=== PATIENT | female | born 1960 | race Caucasian/White ===

== ENCOUNTER → 2016-10-14 | Outpatient (CLI) | payer OTHER ==
[2016-08-04 11:46] VITALS: BP 171/101
[~2016-10-14] MED LIST: HYDR-971 PO
[2016-10-14 13:53] LABS: BASO # 0.1 x10^3/uL (0.0-0.2); BASO % 1 % (0-3); EOS % 6 % (0-3); HEMATOCRIT 42.6 % (36.0-47.0); HEMOGLOBIN 14.5 g/dL (12.0-15.5); LYMPH # 1.4 x10^3/uL (1.0-4.8); LYMPH % 28 % (24-48); MEAN CORPUSCULAR HEMOGLOBIN 33 pg (25-35); MEAN CORPUSCULAR HGB CONC 34 g/dL (31-37); MEAN CORPUSCULAR VOLUME 96 fL (79-100); MONO % 10 % (0-9); NEUT % 56 % (31-73); PLATELET COUNT 244 x10^3/uL (140-400); RED BLOOD COUNT 4.43 x10^6/uL (3.50-5.40); RED CELL DISTRIBUTION WIDTH 12.3 % (11.5-14.5); WHITE BLOOD COUNT 5.2 x10^3/uL (4.0-11.0)
[2016-10-14 14:16] LABS: ALBUMIN 3.7 g/dL (3.4-5.0); ALBUMIN/GLOBULIN RATIO 1.1 (1.0-1.7); CALCIUM 8.8 mg/dL (8.5-10.1); CREATININE 0.7 mg/dL (0.6-1.0); GFR 86.6; POTASSIUM 4.1 mmol/L (3.5-5.1); TOTAL BILIRUBIN 0.5 mg/dL (0.2-1.0)
[2016-10-15 02:12] LABS: VITAMIN D25(OH)TOTAL 8.7 ng/mL (30.0-100.0)
[2016-10-15 09:15] LABS: ESTRADIOL LEVEL 6.6 pg/mL (.); FSH 52.3 mIU/mL (.); TESTOSTERONE TOTAL 13 ng/dL (3-41)
== END | disposition home or self-care (01) ==
LOC: LAB 13:35
PROVIDERS: ATTEND Family Medicine
DX: G47.00 Insomnia, unspecified (principal); R53.81 Other malaise; E34.9 Endocrine disorder, unspecified
CPT/HCPCS: 36415; 80053; 82306; 82670; 83001; 84403; 84443; 85027

== ENCOUNTER 2016-10-31 15:29 | Emergency (ER) | payer OTHER ==
[2016-08-04 11:46] VITALS: BP 171/101
== END 2016-10-31 16:33 | disposition left against medical advice (07) ==
LOC: ER 15:29
DX: R06.02 Shortness of breath (principal); Z53.21 Procedure and treatment not carried out due to patient leaving prior to being seen by health care provider

== ENCOUNTER 2016-11-02 11:57 | Emergency (ER) | payer OTHER ==
[~2016-11-02] VITALS: Ht 170.2 cm; Wt 81.6 kg
[2016-11-02 13:15] VITALS: BP 126/80
[2016-11-02] MEDS ORDERED: ALBUTEROL SULFATE 2.5 MG/3 ML NEBU. NEB ONE (13:30)
--- NOTE | 2016-11-02 13:48 | RAD ---
Chest, 2 views, 11/02/2016: History: Deep, painful cough The heart size is normal. No pulmonary infiltrates are seen. There is no evidence of pleural fluid. Mild spurring is present in the spine. IMPRESSION: No acute cardiopulmonary abnormality is detected.
--- NOTE | 2016-11-02 13:50 | PHYS DOC ---
Past Medical History Past Medical History: Hypertension Past Surgical History: No Surgical History Alcohol Use: Occasionally Drug Use: None Adult General Chief Complaint Chief Complaint: COUGH HPI HPI Patient is a 56 year old female who presents with cough for two weeks. Reports her PCP called in a Z-matt three days ago and it has not helped. She has also been using her inhaler without much relief. Denies fever, nasal congestion, sore throat, chest pain, edema. Quit smoking one month ago Review of Systems Review of Systems Constitutional: Denies fever or chills Eyes: Denies change in visual acuity, redness, or eye pain [] HENT: Denies nasal congestion or sore throat Respiratory: Denies shortness of breath. Cough 2 weeks Cardiovascular: No additional information not addressed in HPI [] GI: Denies abdominal pain, nausea, vomiting, bloody stools or diarrhea [] : Denies dysuria or hematuria [] Musculoskeletal: Denies back pain or joint pain [] Integument: Denies rash or skin lesions [] Neurologic: Denies headache, focal weakness or sensory changes [] Endocrine: Denies polyuria or polydipsia [] Current Medications Current Medications Current Medications Medications (Trade) Dose Ordered Sig/Parvin Start Time Stop Time Status Last Admin Dose Admin Albuterol Sulfate (Ventolin Neb Soln) 2.5 mg 1X ONCE 11/02/16 13:30 11/02/16 13:31 DC 11/02/16 13:36 2.5 MG Prednisone (Prednisone) 60 mg 1X ONCE 11/02/16 14:00 11/02/16 14:01 DC 11/02/16 14:06 60 MG Allergies Allergies Allergies Coded Allergies Type Severity Reaction Last Updated Verified No Known Drug Allergies 08/04/16 No Physical Exam Physical Exam Constitutional: Well developed, well nourished, no acute distress, non-toxic appearance. [] HENT: Normocephalic, atraumatic, bilateral external ears normal, oropharynx moist, no oral exudates, nose normal. Eyes: PERRLA, EOMI, conjunctiva normal, no discharge. Neck: Normal range of motion, no tenderness, supple, no stridor. Cardiovascular:Heart rate regular rhythm, no murmur Lungs & Thorax: Expiratory wheezes posterior upper lobes. No increased work of breathing Abdomen: Bowel sounds normal, soft, no tenderness, no masses, no pulsatile masses. Skin: Warm, dry, no erythema, no rash. [] Back: No tenderness, no CVA tenderness. [] Extremities: No tenderness, no cyanosis, no clubbing, ROM intact, no edema. [] Neurologic: Alert and oriented X 3, normal motor function, normal sensory function, no focal deficits noted. [] Psychologic: Affect normal, judgement normal, mood normal. [] Current Patient Data Vital Signs Vital Signs Date Time Temp Pulse Resp B/P Pulse Ox O2 Delivery O2 Flow Rate FiO2 11/02/16 13:36 Room Air 11/02/16 13:15 98.3 80 20 97 98.3 EKG EKG [] Radiology/Procedures Radiology/Procedures [] Impressions: 1. Bronchitis Course & Med Decision Making Course & Med Decision Making Pertinent Labs and Imaging studies reviewed. (See chart for details) Wheezes clear after treatment Dragon Disclaimer Dragon Disclaimer This electronic medical record was generated, in whole or in part, using a voice recognition dictation system. Departure Departure Impression: Primary Impression: Bronchitis Disposition: 01 HOME, SELF-CARE Condition: STABLE Referrals: ARNAUD KLEIN MD (PCP) Patient Instructions: Acute Bronchitis, [id number] Additional Instructions: Continue the antibiotic as prescribed along with the inhaler. Follow up with primary doctor in 2-3 days. Return if any problems or concerns. Scripts Benzonatate (Tessalon Perle)100 Mg [id number] Mg PO TID PRN COUGH #20 CAP Prov:SARAH GALARZA APRN 11/02/16 Prednisone 50 Mg [id number] Mg PO DAILY #5 TAB Prov:SARAH GALARZA APRN 11/02/16 SARAH GALARZA APRN Nov 02, 2016 13:50
[2016-11-02] MEDS ORDERED: PREDNISONE 20 MG TABLET PO ONE (14:00)
[2016-11-02] MEDS ORDERED: BENZ100C PO (14:21)
[2016-11-02] MEDS ORDERED: PRED50TA PO (14:21)
== END 2016-11-02 14:26 | disposition home or self-care (01) ==
LOC: ER 11:57
DX: J40 Bronchitis, not specified as acute or chronic (principal); I10 Essential (primary) hypertension
CPT/HCPCS: 71020; 94250; 94640; 99284; J7512

== ENCOUNTER → 2016-11-09 | Outpatient (CLI) | payer OTHER ==
[2016-11-02 13:15] VITALS: BP 126/80
[~2016-11-09] MED LIST changes: +BENZ100C PO; +PRED50TA PO
--- NOTE | 2016-11-09 13:19 | RAD ---
PROCEDURE MR of the left shoulder HISTORY Left shoulder pain for 4 months after a fall. TECHNIQUE Standard noncontrast images are obtained. Standard noncontrast images are obtained. COMPARISON None FINDINGS Mild acromioclavicular joint primary osteoarthritis. Diffuse heterogeneous increased T2 signal within the supraspinatus and infra spinatus tendons compatible with tendinosis or contusion. At the far anterior supraspinatus tendon footprint there is a full-thickness through and through defect, measuring less than 1 cm diameter, coronal series 6, image 14. Only mild muscle atrophy. Subscapularis tendinosis with slight mild partial tearing. There is marrow edema within the anterior greater tuberosity with an intraosseous cyst. Nondisplaced fracture at the anterior greater tuberosity is possible. Trace glenohumeral joint effusion. Mild distortion and degenerative signal at the superior labrum. No evidence of a clear-cut labral tear or detachment. No advanced primary osteoarthritis at the glenohumeral joint. Biceps tendon appears intact. No acute soft tissue injury. IMPRESSION 1. Generalized rotator cuff signal compatible with tendinosis or contusion. Very small full-thickness non retracted tear at the far anterior supraspinatus footprint. Mild subscapularis tendon partial tear. 2. Superior labral degeneration. Electronically signed by: Fahad Latham MD (Nov 09, 2016 13:18:23)
== END | disposition home or self-care (01) ==
LOC: MRI 10:21
PROVIDERS: ATTEND Family Medicine
DX: M25.512 Pain in left shoulder (principal)
CPT/HCPCS: 73221

== ENCOUNTER → 2016-12-02 | Outpatient (CLI) | payer OTHER ==
[2016-11-02 13:15] VITALS: BP 126/80
--- NOTE | 2016-12-02 12:16 | RAD ---
Examination: CT chest without contrast History: History of recurrent cough Comparison: None available Technique: Axial CT images were performed without contrast. Coronal and sagittal reformats were performed PQRS Compliance Statement: One or more of the following individualized dose reduction techniques were utilized for this examination: 1. Automated exposure control 2. Adjustment of the mA and/or kV according to patient size 3. Use of iterative reconstruction technique Findings: The visualized thyroid gland grossly appears unremarkable. The central airways are patent. The heart size grossly appears unremarkable. Coronary artery calcifications identified Small hiatal hernia is noted. No evidence of mediastinal lymphadenopathy identified. The lungs are clear. The visualized noncontrasted liver, spleen, adrenals grossly appears unremarkable. No evidence of lytic bony destructive lesion. Impression: 1. The lungs are clear. 2. Small hiatal hernia. 3. Coronary artery calcifications.
== END | disposition home or self-care (01) ==
LOC: CT 11:12
PROVIDERS: ATTEND Family Medicine
DX: I25.10 Atherosclerotic heart disease of native coronary artery without angina pectoris (principal); K44.9 Diaphragmatic hernia without obstruction or gangrene
CPT/HCPCS: 71250

== ENCOUNTER → 2017-02-02 | Outpatient (CLI) | payer OTHER ==
--- NOTE | 2017-02-02 11:19 | RAD ---
Left ankle, 3 views, 02/02/2017: History: Ankle pain There is a nondisplaced fracture of the distal fibula. There are sclerotic changes along the fracture line suggesting that this is a subacute injury. No other fracture or dislocation is identified. IMPRESSION: Nondisplaced subacute fracture of the distal left fibula.
== END | disposition home or self-care (01) ==
LOC: RAD 10:24
PROVIDERS: ATTEND Family Medicine
DX: M25.572 Pain in left ankle and joints of left foot (principal)
CPT/HCPCS: 73610

== ENCOUNTER → 2017-02-15 | Outpatient (CLI) | payer OTHER ==
--- NOTE | 2017-02-15 12:55 | RAD ---
EXAM: DIGITAL DIAGNOSTIC LT. HISTORY: 6 month follow-up on breast asymmetry. COMPARISON: Diagnostic left mammogram 08/23/2016. Bilateral mammogram 08/07/2016 and 08/31/2012. FINDINGS: Digital mammography was performed. Computer-aided detection (CAD) was utilized. Routine CC and MLO views of the left breast were obtained. The breast parenchyma demonstrates scattered fibroglandular densities (tissue density B). No suspicious microcalcifications are seen in either breast. The asymmetry in the posterior left breast mammogram 11 view appears slightly less apparent than on the July 2016 study. IMPRESSION: The asymmetry in the posterior left breast on MLO view appears slightly less apparent since July 2016 study. This is favored to represent asymmetric breast parenchyma. Recommend a follow-up diagnostic mammogram in 6 months at which time right breast will be due for annual screening. BI-RADS CATEGORY: 3 PROBABLY BENIGN FINDING(S)-SHORT INTERVAL FOLLOW-UP SUGGESTED RECOMMENDED FOLLOW-UP: 6M 6 MONTH FOLLOW-UP PQRS compliance statement: Patient information was entered into a reminder system with a target due date for the next mammogram. Mammography is a sensitive method for finding small breast cancers, but it does not detect them all and is not a substitute for careful clinical examination. A negative mammogram does not negate a clinically suspicious finding and should not result in delay in biopsying a clinically suspicious abnormality. "Our facility is accredited by the [employer] Mammography Program."
== END | disposition home or self-care (01) ==
LOC: MAMMO 12:20
PROVIDERS: ATTEND Family Medicine
DX: R92.8 Other abnormal and inconclusive findings on diagnostic imaging of breast (principal)
CPT/HCPCS: G0206; 77065

== ENCOUNTER → 2017-08-16 | Outpatient (CLI) | payer OTHER ==
--- NOTE | 2017-08-16 15:47 | RAD ---
DATE: 08/16/2017 EXAM: DIGITAL DIAGNOSTIC BILATERAL HISTORY: 6 month follow-up on left, screening on right COMPARISON: 02/15/2017, 08/15/2016 This study was interpreted with the benefit of Computerized Aided Detection (CAD). The breast parenchyma shows scattered fibroglandular densities. Breast parenchyma level B. FINDINGS: An asymmetric density in the upper aspect left breast is unchanged. This is best seen in the oblique view and is unchanged since 08/15/2016. No new or enlarging breast densities are seen. Benign type calcification is present. No suspicious microcalcifications have developed. IMPRESSION: Stable mammograms without evidence of malignancy. Follow-up left mammograms in 6 months and bilateral mammography at one year is suggested. BI-RADS CATEGORY: 3 PROBABLY BENIGN FINDING(S)-SHORT INTERVAL FOLLOW-UP SUGGESTED RECOMMENDED FOLLOW-UP: 6M 6 MONTH FOLLOW-UP PQRS compliance statement: Patient information was entered into a reminder system with a target due date for the next mammogram. Mammography is a sensitive method for finding small breast cancers, but it does not detect them all and is not a substitute for careful clinical examination. A negative mammogram does not negate a clinically suspicious finding and should not result in delay in biopsying a clinically suspicious abnormality. "Our facility is accredited by the [employer] Mammography Program."
== END | disposition home or self-care (01) ==
LOC: MAMMO 12:30
PROVIDERS: ATTEND Family Medicine
DX: R92.8 Other abnormal and inconclusive findings on diagnostic imaging of breast (principal)
CPT/HCPCS: G0204; 77066

== ENCOUNTER → 2018-02-28 | Outpatient (CLI) | payer OTHER | END | disposition home or self-care (01) | LOC: MAMMO 12:29 | DX: R92.8 Other abnormal and inconclusive findings on diagnostic imaging of breast (principal) | CPT/HCPCS: 77065; G0279 ==

== ENCOUNTER → 2018-08-31 | Outpatient (CLI) | payer OTHER ==
[~2018-08-31] MED LIST changes: +HYDR-3164 PO; -HYDR-971 PO
--- NOTE | 2018-08-31 14:34 | RAD ---
DATE: 08/31/2018 EXAM: MAMMO ANGELA SCREENING BILATERAL HISTORY: Routine screening. COMPARISON: Previous mammogram from 2017 and 2016. This study was interpreted with the benefit of Computerized Aided Detection (CAD). FINDINGS: Breast Density: SCATTERED The breast parenchyma shows scattered fibroglandular densities. Breast parenchyma level B. The skin and nipples are within normal limits. No suspicious calcifications, spiculated mass or area of architectural distortion. IMPRESSION: No mammographic evidence of malignancy. BI-RADS CATEGORY: 2 BENIGN FINDING(S) RECOMMENDED FOLLOW-UP: 12M 12 MONTH FOLLOW-UP PQRS compliance statement: Patient information was entered into a reminder system with a target due date for the next mammogram. Mammography is a sensitive method for finding small breast cancers, but it does not detect them all and is not a substitute for careful clinical examination. A negative mammogram does not negate a clinically suspicious finding and should not result in delay in biopsying a clinically suspicious abnormality. "Our facility is accredited by the [employer] Mammography Program."
== END | disposition home or self-care (01) ==
LOC: MAMMO 12:28
PROVIDERS: ATTEND Family Medicine
DX: Z12.31 Encounter for screening mammogram for malignant neoplasm of breast (principal)
CPT/HCPCS: 77063; 77067

== ENCOUNTER → 2018-11-08 | Outpatient (CLI) | payer OTHER ==
--- NOTE | 2018-11-08 13:24 | RAD ---
PQRS Compliance statement: One or more of the following individualized dose reduction techniques were utilized for this examination: 1. Automated exposure control. 2. Adjustment of the mA and/or kV according to patient size. 3. Use of iterative reconstruction technique. Indication:CHRONIC SINUSITIS, NO PRIORS TECHNIQUE: CT of the maxillofacial bones without IV contrast multiplanar reformats. COMPARISON: None FINDINGS: Small mucous cyst or polyp is seen in the right frontal sinus. Rest of the paranasal sinuses are within normal limits. The bilateral ostiomeatal complexes intact. Nasal septum is midline. The bilateral external auditory canals and inner ear cavities are within normal limits. The lenses, globes, extraocular muscles and intraorbital fat are within normal limits. The noncontrast appearance of the nasopharynx and oropharynx is within normal limits. Bilateral temporal mandibular joints are within normal limits. IMPRESSION: Small mucous cyst or polyp in the right frontal sinus. Rest of the paranasal sinuses are within normal limits. Electronically signed by: Jeb Mccarthy DO (11/08/2018 1:21 PM) [id number]
== END | disposition home or self-care (01) ==
LOC: CT 14:49
PROVIDERS: ATTEND Otolaryngology
DX: J32.9 Chronic sinusitis, unspecified (principal)
CPT/HCPCS: 70486

== ENCOUNTER → 2018-12-24 | Outpatient (CLI) | payer OTHER ==
--- NOTE | 2018-12-25 13:56 | SLEEP ---
DATE OF STUDY: 12/24/2018 ATTENDING PHYSICIAN: Dr. Arnaud Mata. The patient is a 58-year-old who weighs 180 pounds with a BMI of 28. The patient's Crouse score was 12. The patient underwent split night study at [facility]. During the night study, the patient spent 416 minutes in bed and slept for 335 minutes with a sleep efficiency of 81%. Sleep latency was 71 minutes with a REM latency of 187 minutes. Overall, sleep architecture showed normal stage 1 and stage 2 sleep, increased N3 sleep and normal REM sleep. During the initial diagnostic portion of the study, the patient slept for 69 minutes. During that time there were 47 obstructive apneas, 5 mixed apneas, no central apneas and 19 hypopneas. The patient's apnea-hypopnea index was 62 per hour, supine index 91 per hour. REM sleep was not seen during the diagnostic portion. EKG monitoring revealed normal sinus rhythm. Average heart rate was 70 beats per minute, no sustained arrhythmias observed. Nocturnal oximetry study revealed an average oxygen saturation of 94% with the lowest of 89%. No significant desaturation of less than 89% observed. PLMS were seen at an index of 14 per hour and 6 per hour caused EEG arousals. The patient met the criteria for CPAP initiation. It was started at 5 cm water and titrated up to 7 cm water. At the final pressure, the patient slept for 20 minutes. The patient had supine as well as REM sleep. The patient's AHI was reduced to 0 per hour and oxygen saturation remained above 89%. The patient used small sized nasal pillows. IMPRESSION: 1. Severe sleep apnea-hypopnea syndrome at an apnea-hypopnea index of 62 per hour. 2. No clinically significant nocturnal hypoxia. 3. Mild periodic limb movements of sleep. RECOMMENDATIONS: 1. CPAP at 7 cm water completely eliminated the patient's sleep apnea and should be used on a nightly basis. 2. Follow up in 4-6 weeks to assess compliance with CPAP and to document clinical improvement. 3. Weight loss is advised. 4. Avoid [employer] depressants. 5. Cautioned regarding driving until symptoms of sleep apnea have resolved with the use of CPAP. 6. PLMS does not need to be treated unless the patient has symptoms of restless legs during the day. TRISH OCHOA MD DR: DIAMANTE/sofi JOB#: [id number] / [id number] ARNAUD Herrera MD
== END | disposition home or self-care (01) ==
LOC: SLPLAB 19:00
PROVIDERS: ATTEND Family Medicine
DX: G47.30 Sleep apnea, unspecified (principal); R06.83 Snoring; I10 Essential (primary) hypertension; K21.9 Gastro-esophageal reflux disease without esophagitis
CPT/HCPCS: 95810

== ENCOUNTER → 2019-08-27 | Outpatient (CLI) | payer OTHER ==
--- NOTE | 2019-08-27 15:46 | KCIC ---
BRAIN W/O CONTRAST Date: 08/27/2019 12:30 PM Indication: Daily headaches Comparison: None. Technique: Multiplanar multisequence MRI of the brain was performed without intravenous contrast using the standard protocol. Findings: No acute infarct. No acute or chronic hemorrhage. The ventricles are normal in size and configuration without hydrocephalus. The scalp and calvarium are normal. The pituitary and sella are normal. No Chiari malformation. The visualized upper cervical spine is normal. The visualized orbits and globes are normal. Mild frontal sinus disease. The mastoid air cells are clear. Normal flow voids within the vertebral, basilar, and internal carotid arteries indicating patency. IMPRESSION: No acute infarct, hemorrhage, mass, or hydrocephalus. Electronically signed by: Mauro Avila MD (08/27/2019 3:43 PM) [id number]
== END | disposition home or self-care (01) ==
LOC: KCIC MRI 12:03
PROVIDERS: ATTEND Family Medicine
DX: G44.52 New daily persistent headache (NDPH) (principal); J34.89 Other specified disorders of nose and nasal sinuses
CPT/HCPCS: 70551

== ENCOUNTER → 2019-09-05 | Outpatient (CLI) | payer OTHER ==
--- NOTE | 2019-09-05 14:46 | RAD ---
EXAM: Pelvis and right hip, 3 views. HISTORY: Pain. COMPARISON: None. FINDINGS: A frontal view of the pelvis and 2 views of the right hip are obtained. There is right hip joint space narrowing with subchondral sclerosis, subchondral cyst formation and marginal femoral head spurring. There is mild lumbar levoscoliosis and degenerative change at the lower lumbar levels. IMPRESSION: 1. Mild right hip osteoarthritis. 2. Degenerative change at the lower lumbar levels. Electronically signed by: Karey Vargas MD (09/05/2019 2:43 PM) [place] [id number]
--- NOTE | 2019-09-05 16:12 | RAD ---
EXAM: Lumbar spine, 5 views. HISTORY: Pain. COMPARISON: None. FINDINGS: 5 views of the lumbar spine are obtained. There is mild S-shaped lumbar scoliosis. There is minimal grade 1 anterolisthesis of L3 on L4 and L4 and L5. There is degenerative endplate remodeling at multiple levels. There is disc space narrowing at L5-S1. There is multilevel facet arthropathy. There is right hip joint space narrowing with subchondral sclerosis, subchondral cyst formation and marginal femoral head spurring. IMPRESSION: 1. Multilevel degenerative change involving the lumbar spine, primarily at the lumbosacral junction. 2. Minimal grade 1 anterolisthesis of L3 on L4 and L4 and L5 and minimal lumbar scoliosis. 3. Moderate right hip osteoarthritis, not formally assessed on this exam. Electronically signed by: Karey Vargas MD (09/05/2019 4:09 PM) [id number]
--- NOTE | 2019-09-06 12:07 | RAD ---
DATE: September 05, 2019 EXAM: MAMMO ANGELA SCREENING BILATERAL HISTORY: Screening study. COMPARISON: 2015 through 2018 This study was interpreted with the benefit of Computerized Aided Detection (CAD). 2-D digital mammographic views of both breasts were performed in the CC and MLO projections. 3-D digital tomosynthesis images of both breasts were performed in the CC and MLO projections and reviewed on a computer workstation. FINDINGS: Breast Density: SCATTERED The breast parenchyma shows scattered fibroglandular densities. Breast parenchyma level B.. There are no dominant suspicious masses, suspicious microcalcifications or evidence of architectural distortion. Breast nodularity is stable. IMPRESSION: No mammographic indicators for malignancy. BI-RADS CATEGORY: 2 BENIGN FINDING RECOMMENDED FOLLOW-UP: 12M 12 MONTH FOLLOW-UP PQRS compliance statement: Patient information was entered into a reminder system with a target due date September 06, 2020 for the next mammogram. Mammography is a sensitive method for finding small breast cancers, but it does not detect them all and is not a substitute for careful clinical examination. A negative mammogram does not negate a clinically suspicious finding and should not result in delay in biopsying a clinically suspicious abnormality. "Our facility is accredited by the [employer] Mammography [employer]." The patient's breast density may affect the ability of mammography to detect breast cancer. There are 4 categories of breast density, A, B, C and D. Breast density A means that most of the breast tissue is replaced with adipose tissue and therefore is not dense. Breast density B means that the breast tissue is mildly dense and scattered. Breast density C means that the breast tissue is heterogeneously dense. Breast density D means that the breast tissue is very dense. Breast densities especially C and D may decrease the sensitivity of mammography to detect breast cancer. Therefore, the patient may benefit from 3-D breast mammography (3D breast tomography) as a part of their screening mammogram. Insurance may or may not pay for this additional imaging. The patient's breast density based on today's mammogram is category B.
== END | disposition home or self-care (01) ==
LOC: MAMMO 13:58
PROVIDERS: ATTEND Family Medicine
DX: Z12.31 Encounter for screening mammogram for malignant neoplasm of breast (principal); M43.16 Spondylolisthesis, lumbar region; M48.07 Spinal stenosis, lumbosacral region; M41.86 Other forms of scoliosis, lumbar region; M16.11 Unilateral primary osteoarthritis, right hip; M47.816 Spondylosis without myelopathy or radiculopathy, lumbar region
CPT/HCPCS: 72110; 73502; 77063; 77067

== ENCOUNTER → 2020-03-02 | Outpatient (CLI) | payer OTHER ==
[~2020-03-02] MED LIST changes: +BUPIVACAINE MPF 0.5% 10 ML VIAL. IJ ONE; +IOHEXOL 300 MG/ML 50 ML VIAL. INT ART ONE; +LIDOCAINE WITH 8.4% SOD BICARB 3 ML DISP.SYRIN. INJ ONE; +LIDOCAINE WITH 8.4% SOD BICARB 3 ML DISP.SYRIN. ONE; +methylPREDNISolone ACETATE 80 MG/ML VIAL. INJ ONE
--- NOTE | 2020-03-02 17:25 | RAD ---
EXAM: Fluoroscopically guided right hip injection for local anesthetic delivery. HISTORY: 59-year-old woman with right hip pain. Request for intra-articular injection of local anesthetic requested.. TECHNIQUE: The risks and benefits of the procedure were discussed with the patient and written and verbal consent were obtained. A time out procedure was performed. Fluoroscopic imaging of the right hip was performed. The overlying skin was sterilely prepped and infiltrated with 1% lidocaine for local anesthesia. A 22-gauge spinal needle was then advanced into the joint space under fluoroscopic guidance. Intra-articular positioning positioning was confirmed with a small injection of iodinated contrast. A cocktail containing 80 mg of Depo-Medrol, 2 mL of 0.5 percent bupivacaine, and 2 mL of 1 percent lidocaine was injected into the right hip joint and the tubing and needle were flushed with 10 mL of sterile saline. Instrumentation was withdrawn and a sterile dressing placed. There were no immediate complications. Fluoroscopy time 1.3 minutes. 4 images were obtained. IMPRESSION: Successful fluoroscopically guided right hip injection of local anesthetic containing 80 mg of Depo-Medrol, 2 mL of 0.5 bupivacaine and 2 mL of 1 percent lidocaine as described. No apparent complications. Electronically signed by: Mehran Ty MD (03/02/2020 5:22 PM) [id number]
== END | disposition home or self-care (01) ==
LOC: RAD 12:34
PROVIDERS: ATTEND Orthopaedic Surgery Sports Medicine
DX: M25.551 Pain in right hip (principal)
CPT/HCPCS: 20610; 77002; J1040; J3490; Q9967

== ENCOUNTER → 2020-04-21 | Outpatient (CLI) | payer OTHER ==
[~2020-04-21] MED LIST changes: -BUPIVACAINE MPF 0.5% 10 ML VIAL. IJ ONE; -IOHEXOL 300 MG/ML 50 ML VIAL. INT ART ONE; -LIDOCAINE WITH 8.4% SOD BICARB 3 ML DISP.SYRIN. INJ ONE; -LIDOCAINE WITH 8.4% SOD BICARB 3 ML DISP.SYRIN. ONE; -methylPREDNISolone ACETATE 80 MG/ML VIAL. INJ ONE
== END | disposition home or self-care (01) ==
LOC: LAB 14:16
PROVIDERS: ATTEND Internal Medicine Pulmonary Disease
DX: R19.7 Diarrhea, unspecified (principal); Z20.828 Contact with and (suspected) exposure to other viral communicable diseases
CPT/HCPCS: U0003-CS

== ENCOUNTER → 2020-10-28 | Outpatient (CLI) | payer OTHER ==
--- NOTE | 2020-10-28 20:07 | RAD ---
DATE: 10/28/2020 EXAM: MAMMO ANGELA SCREENING BILATERAL HISTORY: Screening COMPARISON: 09/05/2019, 08/31/2018, 08/16/2017 This study was interpreted with the benefit of Computerized Aided Detection (CAD). Breast Density: SCATTERED The breast parenchyma shows scattered fibroglandular densities. Breast parenchyma level B. FINDINGS: There are 2 mildly dense area of architectural distortion in the right breast on CC view, one along the posterior nipple line, 2.7 cm posterior to the nipple and 1 chest medial to the nipple line, 6.5 cm posterior to the nipple. These are not definitely seen on tomosynthesis or MLO view. No architectural distortion in the left breast. No mass or suspicious calcification in either breast. IMPRESSION: 2 areas of architectural distortion in the right breast on CC view. Recommend spot compression CC view and possible ultrasound further evaluate. BI-RADS CATEGORY: 0 INCOMPLETE: NEEDS ADDITIONAL IMAGING EVALUATION AND/OR PRIOR MAMMOGRAMS FOR COMPARISON. RECOMMENDED FOLLOW-UP: ADD ADDITIONAL IMAGING PQRS compliance statement: Patient information was entered into a reminder system with a target due date for the next mammogram. Mammography is a sensitive method for finding small breast cancers, but it does not detect them all and is not a substitute for careful clinical examination. A negative mammogram does not negate a clinically suspicious finding and should not result in delay in biopsying a clinically suspicious abnormality. "Our facility is accredited by the [employer] Mammography Program."
== END ==
LOC: MAMMO 09:03
PROVIDERS: ATTEND Family Medicine
DX: Z12.31 Encounter for screening mammogram for malignant neoplasm of breast (principal)
CPT/HCPCS: 77063; 77067

== ENCOUNTER → 2020-12-07 | Outpatient (CLI) | payer OTHER ==
--- NOTE | 2020-12-07 16:14 | RAD ---
Examination: 1. Right digital diagnostic mammogram. 2. Limited right breast ultrasound. INDICATION: 60-year-old woman recalled from screening for areas of single view architectural distorti on on right 2-D mammographic images. COMPARISON: Bilateral screening mammograms of 08/15/2016, 09/05/2019 and bilateral 3-D screening mamm ogram of 10/28/2020 TECHNIQUE: Full field right ML and spot CC views of the right breast were obtained. Targeted ultrasou nd right breast was next pursued. FINDINGS: Scattered fibroglandular densities. The more posterior of the 2 areas of questioned architectural distortion dissipated with additional m ammographic spot compression views. The more anterior of the 2 areas of questionable architectural distortion changed configuration in a pattern compatible with benign overlap of fibroglandular tissue. In comparison with multiple prior ye ars, no suspicious interval change is apparent. Targeted ultrasound of the right breast in this area identified a ridge of dense fibroglandular tissue at the 12:00 position 3 cm from the nipple that cor relates with the mammographic finding. No suspicious sonographic findings. IMPRESSION: Benign findings on right diagnostic mammogram and targeted ultrasound. No evidence of malignancy. BI-RADS Category 2 Benign findings Recommend return to routine screening. Electronically signed by: Mehran Ty MD (12/07/2020 4:11 PM) [id number]
== END ==
LOC: MAMMO 09:24
PROVIDERS: ATTEND Family Medicine
DX: R92.8 Other abnormal and inconclusive findings on diagnostic imaging of breast (principal)
CPT/HCPCS: 76641; 77065

== ENCOUNTER → 2021-02-24 | Outpatient (CLI) | payer OTHER ==
[~2021-02-24] MED LIST changes: +ACET500T68 PO; +LACT1CAP6 PO; +MELO15TA23 PO; +OLME20TA17 PO; +OMEP20CA16 PO; +OXYC5CAP PO; +OXYM30SP25 NS; +PSEU120T9 PO; +TRAM50TA PO; +WARF-31 PO
[2021-02-24 14:16] LABS: BASO % 1 % (0-3); EOS # 0.1 x10^3/uL (0.0-0.7); EOS % 3 % (0-3); HEMOGLOBIN 14.4 g/dL (12.0-15.5); LYMPH # 1.3 x10^3/uL (1.0-4.8); LYMPH % 33 % (24-48); MEAN CORPUSCULAR HEMOGLOBIN 34 pg (25-35); MEAN CORPUSCULAR HGB CONC 35 g/dL (31-37); MEAN CORPUSCULAR VOLUME 96 fL (79-100); MONO # 0.4 x10^3/uL (0.0-1.1); MONO % 9 % (0-9); NEUT # 2.2 x10^3/uL (1.8-7.7); NEUT % 54 % (31-73); PLATELET COUNT 231 x10^3/uL (140-400); RED BLOOD COUNT 4.27 x10^6/uL (3.50-5.40); RED CELL DISTRIBUTION WIDTH 12.5 % (11.5-14.5); WHITE BLOOD COUNT 4.1 x10^3/uL (4.0-11.0)
--- NOTE | 2021-02-24 14:20 | EKG ---
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
[2021-02-24 14:26] LABS: PROTHROMBIN TIME PATIENT 12.6 SEC (11.7-14.0)
[2021-02-24 14:36] LABS: ALBUMIN 3.9 g/dL (3.4-5.0); CALCIUM 8.7 mg/dL (8.5-10.1); CREATININE 0.8 mg/dL (0.6-1.0); GFR 73.2; POTASSIUM 4.6 mmol/L (3.5-5.1)
--- NOTE | 2021-02-24 16:37 | RAD ---
EXAM: CHEST 2 VIEWS. HISTORY: Preoperative risk factors. COMPARISON: 11/02/2016. FINDINGS: Frontal and lateral views of the chest are obtained. The lungs are expanded to the 12th posterior ribs but the hemidiaphragms are not clearly flattened. T here are no confluent infiltrates. There is no pneumothorax or pleural effusion. The heart is not enl arged. IMPRESSION: 1. Hyperinflation. Correlate to differentiate deep inspiratory effort from air trapping. No confluent infiltrates. Electronically signed by: Jessica Gleason MD (02/24/2021 4:34 PM) [id number]
[2021-02-25 01:12] LABS: HEMOGLOBIN A1C 5.2 % (4.8-5.6)
== END ==
LOC: SURGPAT 13:30
PROVIDERS: ATTEND Orthopaedic Surgery
DX: Z01.818 Encounter for other preprocedural examination (principal); R94.31 Abnormal electrocardiogram [ECG] [EKG]; Z96.651 Presence of right artificial knee joint
CPT/HCPCS: 36415; 71046; 80048; 82040; 82306; 83036; 85025; 85610; 85651; 85730; 87641; 93005

== ENCOUNTER 2021-03-02 07:23 | Observation (INO) | payer OTHER ==
[2021-02-24 13:53] VITALS: BP 157/77
[2021-03-02] VITALS (9 sets, daily range): BP systolic 121–150; BP diastolic 71–87
[~2021-03-02] VITALS: Ht 170.2 cm; Wt 81.0 kg
[~2021-03-02 07:23] MED LIST changes: -ACET500T68 PO; +ACETAMINOPHEN 500 MG TABLET PO PRN; +GABAPENTIN 300 MG CAPSULE. PO PRN; +IV RINGERS,LACTATED 1000ML 1,000 ML IV SCH; -MELO15TA23 PO; +MELOXICAM 7.5 MG TABLET PO PRN; +MORPHINE SULFATE 2 MG/ML VIAL. IVP PRN; +MORPHINE SULFATE 5 MG, KETOROLAC 30MG VIAL 30 MG, ROPIVacaine 0.5% PF 60 ML, EPINEPHrin... INT ART ONE; -OXYC5CAP PO; +PROCHLORPERAZINE 10 MG/2 ML VIAL. IVP PRN; -TRAM50TA PO; +TRANEXAMIC ACID in NS IVPB 50 ML INJ ONE; -WARF-31 PO; +fentaNYL PF VIAL 100 MCG/2 ML VIAL IVP PRN
[2021-03-02] MEDS ORDERED: WARF-31 PO (07:43)
[2021-03-02] MEDS ORDERED: ACET500T68 PO (07:43)
[2021-03-02] MEDS ORDERED: MELO15TA23 PO (07:43)
[2021-03-02] MEDS ORDERED: TRANEXAMIC ACID in NS IVPB 50 ML INJ ONE (08:00)
[2021-03-02] MEDS ORDERED: VANCOMYCIN 1 GM VIAL. ONE ×2 (08:21)
[2021-03-02 08:28] LABS: PROTHROMBIN TIME PATIENT 12.2 SEC (11.7-14.0)
[2021-03-02] MEDS ORDERED: LIDOCAINE 2% PF 5 ML VIAL. ONE (08:39)
[2021-03-02] MEDS ORDERED: PROPOFOL 10 MG/ML (20ML) VIAL. IV ONE (08:39)
[2021-03-02] MEDS ORDERED: ROCURONIUM 50 MG/5 ML VIAL. ONE (08:40)
[2021-03-02] MEDS ORDERED: MIDAZOLAM HCL/PF 2 MG/2 ML VIAL. ONE (08:40)
[2021-03-02] MEDS ORDERED: fentaNYL PF VIAL 250 MCG/5 ML VIAL ONE (08:40)
[2021-03-02] MEDS ORDERED: ONDANSETRON PF 4 MG/2 ML VIAL. ONE (09:35)
[2021-03-02] MEDS ORDERED: DEXAMETHASONE SOD PHOS 4 MG/ML VIAL ONE (09:35)
[2021-03-02] MEDS ORDERED: PROCHLORPERAZINE 5 MG TABLET. PO PRN (09:45)
[2021-03-02] MEDS ORDERED: 0.9 % SODIUM CHLORIDE 10 ML DISP.SYRIN. IV PRN (09:45)
[2021-03-02] MEDS ORDERED: fentaNYL PF VIAL 100 MCG/2 ML VIAL IVP PRN (09:45)
[2021-03-02] MEDS ORDERED: MORPHINE SULFATE 2 MG/ML VIAL. IVP PRN (09:45)
[2021-03-02] MEDS ORDERED: DEXTROSE 50% 25 GM / 50ML DISP.SYRIN. IV PRN (09:45)
[2021-03-02] MEDS ORDERED: CALCIUM CARBONATE 500 MG TAB.CHEW PO PRN (09:45)
[2021-03-02] MEDS ORDERED: diphenhydrAMINE 50 MG/ML VIAL IVP PRN (09:45)
[2021-03-02] MEDS ORDERED: IV NORMAL SALINE 1000ML BAG 1,000 ML IV SCH (09:45)
[2021-03-02] MEDS ORDERED: ZOLPIDEM 5 MG TABLET. PO PRN (09:45)
[2021-03-02] MEDS ORDERED: TRANEXAMIC ACID in NS IVPB 50 ML ONE (09:49)
[2021-03-02] MEDS: MULTIVITAMIN with MINERAL TABLET. PO SCH (10:00)
[2021-03-02] MEDS ORDERED: SEVOFLURANE > 120 MINUTES. IH ONE (10:05)
[2021-03-02] MEDS ORDERED: HYDROmorphone 2 MG/ML VIAL ONE ×2 (10:16→12:34)
[2021-03-02] MEDS ORDERED: fentaNYL PF VIAL 100 MCG/2 ML VIAL ONE (12:03)
--- NOTE | 2021-03-02 12:05 | PDOC4 ---
Operative Note Operative Note Date of surgery: 03/02/2021 Preoperative diagnosis: Degenerative joint disease right hip Postoperative diagnosis: Same Operative procedure: Right total hip arthroplasty with anterior approach Surgeon Jeannine Manager [employer]: Ovidio sarmiento Anesthesia: General Estimated blood loss: 400 cc Complications: None Drains: None Operative indications: Please see my orthopedic clinic note and dictated history and physical for detailed operative indications and note that we covered risks benefits postoperative course of the procedure. All her questions were answered and she wishes to proceed with surgical evaluation and treatment having given informed consent Operative text: Patient was identified procedure verified patient placed in the supine position on the [place] fracture table after adequate amounts of general ane sthesia were administered. All bony prominences were well-padded and right hip was prepped and draped in the standard sterile fashion. After timeout was performed patient procedure identified and verified an incision was made just distal to the anterior superior iliac spine running along the tensor fascia shadia for a distance of about 4 inches. Fascia was incised tensor fascia shadia was taken laterally and circumflex vessels were located and coagulated and the anterior capsule was exposed with the rectus femoris gently retracted medially along with the underlying fascia that was dissected free. Capsule was split in a T-shaped incision and superior aspect of the capsule was excised and further superior release was carried out with the hip in external rotation. Hip was returned to 40 degrees external rotation and a napkin ring cut was made with an Avenir David broach for reference napkin ring was removed and femoral head was removed and sized. Reaming was carried out from a size 45 to a size 49 with a size 50 Biomet G7 acetabular shell was placed in proper version under fluoroscopic guidance and excellent scratch fit was noted and a single screw was placed superiorly for additional fixation. A 36 mm vitamin E liner was impacted into place. Femur was brought into maximum external rotation extension and adduction and release was carried out at the 11 o'clock position to free up the femur and retractors were placed medially and above the greater trochanter for maximum femoral exposure box osteotome was used along with the rattail rasp and successive size broaching up to a size 2 which provided excellent stability and fit within the canal. Calcar reaming was carried out and trial fitting with a +7 36 mm head to reproduce leg length and offset appropriately under fluoroscopic guidance. Trial components were removed and a size 2 standard offset collared Avenir stem was impacted into place with a +7 ceramic 36 mm head. Excellent stability and range of motion were noted and leg length and offset were reproduced closely according to measurements from the contralateral side. Thorough irrigation carried out with normal saline solution and pulse lavage. Intra-articular mixture was injected subperiosteally throughout the joint capsule and subcutaneous areas and 1 g vancomycin sprinkled throughout the joint capsule area. Fascia was closed with #1 PDS strata fix suture in a running fashion subcutaneous closure with buried Vicryl skin closure with subcuticular Monocryl and a cheryl dressing was applied. Patient was returned to recovery room in stable condition having tolerated the procedure well. Ovidio sarmiento was present for the procedure and assisted in the patient positioning prepping draping retraction closure and dressings MAR DUFF MD Mar 02, 2021 12:05
[2021-03-02] MEDS: fentaNYL PF VIAL 100 MCG/2 ML VIAL IVP PRN ×2 (12:10→12:23)
[2021-03-02] MEDS: HYDROmorphone 2 MG/ML VIAL IVP PRN ×2 (12:38→13:30)
--- NOTE | 2021-03-02 13:40 | NUR ---
Arrived to unit by bed from PACU. Alert and oriented x's 4. No c/o at this time. Right hip dressing, NICKIE, d/i. Pedal pulses + bilaterally, warm touch and able to wiggle toes easily. IVF's intact and infusing. SCD's and TANK hoses on bilaterally. Oriented to room and controls. Side rails up x's 2 with call light in reach. Daughter at bedside. Cont. monitor.
--- NOTE | 2021-03-02 14:55 | NUR ---
Needing to void. Ambulated to bathroom has steady gait with walker. Pt return back to bed. Cont. monitor.
[2021-03-02] MEDS ORDERED: WARFARIN 7.5 MG TABLET. PO ONE (16:00)
[2021-03-02] MEDS: FERROUS SULFATE 325 MG TABLET. PO SCH (17:05)
[2021-03-02] MEDS: ONDANSETRON PF 4 MG/2 ML VIAL. IVP SCH (17:07)
[2021-03-02] MEDS: ONDANSETRON ODT 4 MG TAB.RAPDIS. PO SCH (18:00)
--- NOTE | 2021-03-02 18:00 | NUR ---
Zofran IV given instead of P.O.
[2021-03-02] MEDS: oxyCODONE IR 5 MG TABLET PO PRN (21:21)
[2021-03-03 02:40] VITALS: BP 150/82
[2021-03-03] MEDS: oxyCODONE IR 5 MG TABLET PO PRN ×3 (02:54→15:21)
[2021-03-03] MEDS: traMADol 50 MG TABLET PO SCH ×2 (04:45→12:02)
[2021-03-03 04:53] LABS: PROTHROMBIN TIME PATIENT 13.9 SEC (11.7-14.0)
[2021-03-03] MEDS: ONDANSETRON ODT 4 MG TAB.RAPDIS. PO SCH ×3 (06:00→12:00)
[2021-03-03] MEDS: GABAPENTIN 100 MG CAPSULE. PO SCH ×2 (06:00→12:05)
[2021-03-03] MEDS ORDERED: MAGNESIUM HYDROXIDE 2,400 MG/30 ML ORAL.SUSP. PO PRN (06:00)
[2021-03-03] MEDS: ONDANSETRON PF 4 MG/2 ML VIAL. IVP SCH ×3 (06:00→12:00)
[2021-03-03 06:15] VITALS: BP 90/55
[2021-03-03] MEDS: ACETAMINOPHEN 500 MG TABLET PO SCH ×2 (07:40→15:21)
[2021-03-03] MEDS: MULTIVITAMIN with MINERAL TABLET. PO SCH (07:40)
[2021-03-03] MEDS: FERROUS SULFATE 325 MG TABLET. PO SCH ×2 (07:41→15:21)
[2021-03-03 07:58] VITALS: BP 133/73
[2021-03-03] MEDS ORDERED: PANTOPRAZOLE 40 MG TABLET.DR. PO SCH (08:00)
[2021-03-03] MEDS ORDERED: LACTOBACILLUS RHAMNOSUS GG 1 CAPSULE. PO SCH (09:00)
[2021-03-03] MEDS ORDERED: MELOXICAM 7.5 MG TABLET PO SCH (09:00)
[2021-03-03] MEDS ORDERED: LOSARTAN POTASSIUM 50 MG TABLET. PO SCH (09:00)
--- NOTE | 2021-03-03 11:02 | NUR ---
Pharmacy Warfarin Dosing Note S: Pharmacy consulted to assist with anticoagulation therapy started 03/02/21 END OF TREATMENT 04/12/21 O: LEONIE BAIRD is a 60 year old F with [facility] LABS: Last INR: 1.1 Last HGB: 11.6 Last dose of 7.5 mg given on 03/02/21 at 1705 A:INR of 1.1 is below desired range. Target range for this patient is: 1.6 - 2.5 P: Warfarin dose: 5 mg Prior to Discharge Bridge Therapy: None Next INR due 03/05/21, then every Monday Pharmacy anticoagulation service will continue to follow. RODRGIO BRUNER RPH, 03/03/21 0178
[2021-03-03] MEDS ORDERED: OXYC5CAP PO (12:40)
[2021-03-03] MEDS ORDERED: TRAM50TA PO (12:41)
[2021-03-03] MEDS ORDERED: BISACODYL 10 MG SUPP.RECT. PR PRN (16:00)
[2021-03-03] MEDS ORDERED: WARFARIN 5 MG TABLET. PO ONE (16:00)
--- NOTE | 2021-03-03 17:30 | NUR ---
Patient left with her daughter around 1710. NICKIE working properly and was CDI. Discharge education given to the patient by this nurse, the doctor, and therapist prior to discharge. IV discontinued. Coumadin education and medicine given by the pharmacist prior to dismissal. OPT set up by manager of case for [facility]. No concerns noted at discharge.
[2021-03-03] MEDS ORDERED: ONDANSETRON PF 4 MG/2 ML VIAL. IVP PRN (18:00)
[2021-03-03] MEDS ORDERED: ONDANSETRON ODT 4 MG TAB.RAPDIS. PO PRN (18:00)
--- NOTE | 2021-03-03 18:57 | DS ---
DATE OF DISCHARGE: 03/03/2021 PRINCIPAL DIAGNOSIS: Degenerative joint disease, right hip. PROCEDURE: Right total hip arthroplasty. DISPOSITION: Home with outpatient physical therapy. Follow up with Dr. Paez or Dr. Lobato 2 weeks. ACTIVITIES: Weightbearing as tolerated. Avoid extremes of range of motion. Maintain NICKIE dressing. When suction machine stops in 1 week cut tail and tape over to maintain seal. DISCHARGE MEDICATIONS: Include oxycodone 5 mg p.o. q.4 hours p.r.n. severe pain, tramadol 50 mg p.o. q.4 hours p.r.n. moderate pain, warfarin as directed by anticoagulation clinic. Continue preoperative medications. BRIEF DESCRIPTION OF HOSPITAL COURSE: The patient underwent uncomplicated total hip arthroplasty and had gotten up and around well with physical therapy, transferred appropriately and safely as well as ambulation and was discharged to home in stable condition. BRAYDEN DR: Jina TID: [id number]
--- NOTE | 2021-03-04 19:08 | PATHOLOGY ---
[place] Accession Number: [id number] . 01 Material submitted: . femur - FEMORAL HEAD. Modifiers: head . 01 Clinical history: . OSTEOARTHRITIS RIGHT HIP RIGHT TOTAL HIP ARTHROPLASTY (ANTERIOR) OA . 02 Diagnosis: Femoral head, anterior right total hip arthroplasty: - Avascular necrosis, with focally advanced degenerative arthritis. (JPM/db; 03/04/2021) LBQ 03/04/2021 1812 Local . 02 Electronically signed: . Alex Linares MD, Pathologist NPI- [id number] . 01 Gross description: . The specimen is received in formalin, labeled "Watson Lamb, femoral head" additionally labeled right on the requisition and received as a 5 x 4.7 x 4.5 cm fairly symmetrical femoral head with femoral neck. The articular surface is worn, irregular and eroded with areas of eburnation underlying the worn cartilage. The cut surfaces are red-brown to hurt-yellow without obvious lesions. Sociology Faculty Member decalcified sections submitted in cassette A1. ([facility]; 03/02/2021) MUARO/MAURO 03/02/2021 2141 Local . 02 Pathologist provided ICD-10: M87.9, M16.11 . 02 CPT . 505702, 108561 Specimen Comment: A courtesy copy of this report has been sent to [phone] Specimen Comment: Report sent to Performed at: 01 [facility] [address], [place] [id number] MD Enzo Hernandez MD Phone: [phone] Performed at: 02 [facility] [address] [place], [place] [id number] MD Alex Linares MD Phone: [phone]
== END 2021-03-03 17:15 | disposition home or self-care (01) ==
LOC: SURG 07:23 → 4 SOUTHEST 09:40
PROVIDERS: ADMIT Orthopaedic Surgery; ATTEND Orthopaedic Surgery
DX: M16.11 Unilateral primary osteoarthritis, right hip (principal); F17.210 Nicotine dependence, cigarettes, uncomplicated; Z79.899 Other long term (current) drug therapy; Z98.890 Other specified postprocedural states
CPT/HCPCS: 27130; 36415; 85018; 85610; 85730; 86850; 86900; 86901; 96365; 96375; 96376; 97116; 97150; 97162; 97165; 97530; 97535; 99406; A4213; A4930; A6223; A6258; A6402; A6550; C1776; G0378; G0379; J0171; J0690; J1100; J1170; J1885; J2250; J2270; J2405; J2704; J2795; J3010; J3370; 76000; 88304; 88311; A4322

== ENCOUNTER 2021-06-17 10:13 | Inpatient (IN) | payer OTHER ==
[~2021-06-17] VITALS: Ht 171.4 cm; Wt 76.6 kg
[~2021-06-17 10:13] MED LIST changes: +ACET500T68 PO; -ACETAMINOPHEN 500 MG TABLET PO PRN; -GABAPENTIN 300 MG CAPSULE. PO PRN; -IV RINGERS,LACTATED 1000ML 1,000 ML IV SCH; +MELO15TA23 PO; -MELOXICAM 7.5 MG TABLET PO PRN; -MORPHINE SULFATE 2 MG/ML VIAL. IVP PRN; -MORPHINE SULFATE 5 MG, KETOROLAC 30MG VIAL 30 MG, ROPIVacaine 0.5% PF 60 ML, EPINEPHrin... INT ART ONE; +OXYC5CAP PO; -PROCHLORPERAZINE 10 MG/2 ML VIAL. IVP PRN; +TRAM50TA PO; -TRANEXAMIC ACID in NS IVPB 50 ML INJ ONE; +WARF-31 PO; -fentaNYL PF VIAL 100 MCG/2 ML VIAL IVP PRN
--- NOTE | 2021-06-17 10:59 | PHYS DOC ---
Past Medical History Past Medical History: Hypertension Additional Past Medical Histor: "I THINK I HAVE IBS." (ALISON BA APRN) Past Surgical History: Other Additional Past Surgical Histo: R KNEE SX (ALISON BA APRN) Smoking Status: Current Every Day Smoker Alcohol Use: Occasionally Drug Use: None (ALISON BA APRN) General Adult EDM: Chief Complaint: DIARRHEA HPI: HPI: Patient is a 60-year-old female who presents to the emergency department with complaints of dark watery stools for the past month. Patient reports watery diarrhea is her norm for bowel movements, states she has had diarrhea stools on every stool for the past several years, patient thinks she might have IBS but has never been diagnosed nor worked up for IBS problems. Patient reports she has never told her primary care physician Dr. Klein about this problem. Patie nt states she became worried when this past Monday her diarrhea stools increased from 3 to 4/day up to more than 10/day and thought through may be blood in her stool because it seemed darker than normal, denies seeing bright red blood in her stool. Patient denies abdominal discomfort, denies nausea, states she vomited once yesterday after drinking some water. Patient reports that she was at [facility] emergency department last night for chest pain and dark diarrhea stool but left AMA because they were not fast enough for her. Patient states she was told her chest pain work-up was negative and it was not her heart. Patient currently denies chest pain or chest discomfort, denies shortness of breath, denies syncopal episodes or dizziness. Denies head pain or rashes to her skin patient denies other physical complaints or physical concerns. (ALISON BA APRN) Review of Systems: Review of Systems: 14 body systems of review of systems have been reviewed. See HPI for pertinent positives and negative responses, otherwise all other systems are negative, nonpertinent or noncontributory. Constitutional: Negative except as outlined in HPI above. Skin: Negative except as outlined in HPI above. Eyes: Negative except as outlined in HPI above. HENT: Negative except as outlined in HPI above. Respiratory: Negative except as outlined in HPI above. Cardiovascular: Negative except as outlined in HPI above. GI: Negative except as outlined in HPI above. : Negative except as outlined in HPI above. Musculoskeletal: Negative except as outlined in HPI above. Integument: Negative except as outlined in HPI above. Neurologic: Negative except as outlined in HPI above. Endocrine: Negative except as outlined in HPI above. Lymphatic: Negative except as outlined in HPI above. Psychiatric: Negative except as outlined in HPI above. (ALISON BA APRN) Heart Score: C/O Chest Pain: No Risk Factors: Risk Factors: DM, Current or recent (<one month) smoker, HTN, HLP, family history of CAD, obesity. Risk Scores: Score 0 - 3: 2.5% MACE over next 6 weeks - Discharge Home Score 4 - 6: 20.3% MACE over next 6 weeks - Admit for Clinical Observation Score 7 - 10: 72.7% MACE over next 6 weeks - Early Invasive Strategies (ALISON BA APRN) Allergies: Allergies: Allergies Coded Allergies Type Severity Reaction Last Updated Verified No Known Medication Allergies Allergy Unknown 03/03/21 Yes benzonatate Adverse Reaction Intermediate 03/03/21 Yes (ALISON BA APRN) Physical Exam: PE: Constitutional: Well developed, well nourished, no acute distress, non-toxic appearance. 60-year-old female in no apparent distress. HENT: Normocephalic, atraumatic. Eyes: Conjunctiva normal, no discharge. Neck: Normal range of motion, no stridor. Cardiovascular: No cyanosis appreciated, distal cap refill less than 2 seconds. Lungs & Thorax: Patient is in no respiratory distress, no audible adventitious lung sounds appreciated. Abdomen: Nontender, no abnormalities noted. No masses, no skin discoloration of the abdomen, bowel sounds normal all 4 quadrants. Skin: Warm, dry, no erythema, no rash. Back: No tenderness, no deformities. Extremities: No tenderness, no cyanosis, no clubbing, ROM intact, no edema. Neurologic: Alert and oriented X 3, normal motor function, normal sensory function, no focal deficits noted. Psychologic: Affect normal, judgement normal, mood normal. : Female ED nurse at bedside for channel executive for digital rectal examination to obtain stool for occult blood, no stool appreciated in the rectal vault, no rashes, no lesions, no external or internal hemorrhoids appreciated. (ALISON BA APRN) Current Patient Data: Vital Signs: Vital Signs Date Time Temp Pulse Resp B/P (MAP) Pulse Ox O2 Delivery O2 Flow Rate FiO2 06/17/21 10:34 98.3 83 16 101/66 (78) 98 Room Air 98.3 (ALISON BA APRN) EKG: EKG: EKG performed 1026 by ED nursing staff shows a normal sinus rhythm without other ectopy heart rate 83 bpm, MO interval 0.134, QTc interval 0.445, no acute STEMI, no ACS, no acute ischemia appreciated, EKG interpreted by ED attending physician Dr. Coe. (ALISON BA APRN) Radiology/Procedures: Radiology/Procedures: [] (ALISON BA APRN) Course & Med Decision Making: Course & Med Decision Making Pertinent Labs and Imaging studies reviewed. (See chart for details) 60-year-old female, vital signs reviewed, presents emergency department concerning dark diarrhea stools. Physical examination unremarkable, patient's vital signs within normal limits, patient did mention being worked up for chest pain yesterday at another ED facility therefore ED nursing staff performed immediate EKG, patient did not complain of chest pain in the ED today. Discussed with patient will order abdominal work-up in the ED, patient is amenable to this plan. No stool in the rectal vault for occult blood study, discussed and reviewed with patient to collect all stool during ED stay to send the lab, patient is aware and agreeable to this plan. Patient chemistry noted hyponatremia sodium 125, acute kidney injury, creatinine 2.8, discussed findings with patient, recommended admission for hyponatremia, CRISTÓBAL, diarrhea, patient is amenable to admission. Called and discussed patient case and ED work-up with inpatient management physician Dr. Christopher who agrees patient's case warrants admission to the [facility]Sur unit for hyponatremia, acute kidney injury, diarrhea, Dr. Christopher to assume patient care, will see patient in ED for ongoing hospital orders and management. (ALISON BA APRN) Dragon Disclaimer: Dragon Disclaimer: This electronic medical record was generated, in whole or in part, using a voice recognition dictation system. (ALISON BA APRN) Departure Departure Impression: Primary Impression: Diarrhea Qualified Codes: R19.7 - Diarrhea, unspecified Additional Impressions: Hyponatremia Acute kidney injury Disposition: ADMITTED INPATIENT Admitting Physician: JOMAR (Admit to Dr. Christopher MedSurg unit) (ALISON BA APRN) Condition: GOOD Referrals: ARNAUD KLEIN MD (PCP) Attending Signature I have participated in the care of this patient and I have reviewed and agree with all pertinent clinical information above including history, exam, and recommendations. (SRIDHAR COE DO) ALISON BA APRN Jun 17, 2021 10:59 SRIDHAR COE DO Jun 17, 2021 13:14
[2021-06-17 11:07] LABS: BASO % 1 % (0-3); EOS # 0.1 x10^3/uL (0.0-0.7); EOS % 2 % (0-3); HEMATOCRIT 42.4 % (36.0-47.0); HEMOGLOBIN 15.4 g/dL (12.0-15.5); LYMPH # 1.6 x10^3/uL (1.0-4.8); LYMPH % 24 % (24-48); MEAN CORPUSCULAR HEMOGLOBIN 33 pg (25-35); MEAN CORPUSCULAR HGB CONC 36 g/dL (31-37); MEAN CORPUSCULAR VOLUME 92 fL (79-100); MONO # 0.9 x10^3/uL (0.0-1.1); MONO % 14 % (0-9); NEUT % 60 % (31-73); PLATELET COUNT 313 x10^3/uL (140-400); RED CELL DISTRIBUTION WIDTH 12.8 % (11.5-14.5); WHITE BLOOD COUNT 6.6 x10^3/uL (4.0-11.0)
[2021-06-17 11:21] LABS: CALCIUM 9.2 mg/dL (8.5-10.1); CREATININE 2.8 mg/dL (0.6-1.0); GFR 17.2; POTASSIUM 3.3 mmol/L (3.5-5.1)
[2021-06-17 11:27] LABS: ALBUMIN 3.8 g/dL (3.4-5.0); TOTAL PROTEIN 7.5 g/dL (6.4-8.2)
[2021-06-17] MEDS ORDERED: IV NORMAL SALINE 1000ML BAG 1,000 ML IV ONE (11:45)
--- NOTE | 2021-06-17 12:09 | PDOC1 ---
History and Physical Date of Admission Date of Admission DATE: 06/17/21 TIME: 12:08 Identification/Chief Complaint Chief Complaint low sodium, weakness, diarrhea, chest tightness last evening History of Present Illness History of Present Illness 60-year-old female who presented to the emergency department with complaints of dark watery stools watery diarrhea is her normal for bowel movements, states she has had diarrhea stools on every stool for the past several years, patient thinks she might have IBS // never been diagnosed nor worked up for IBS problems. this past Monday her diarrhea stools increased from 3 to 4/day up to more than 10/day saw blood in her stool because it seemed darker than normal, denies seeing bright red blood LABS Na 125, k 3.3 cl 87, cr 2.8 bun 36 denies abdominal discomfort, denies nausea, states she vomited once yesterday she was at [place] emergency department last night 06-16 for chest pain and dark diarrhea stool but left AMA because "they were not fast enough" work up there was neg for angina plan ADMIT gi consult Nephrology consult IV FLUID SUPPORT REPLETE K IV trend lytes serum osmolality urine osmolality dvt prophylaxis scd's encouraged smoking cessation urinary spot sodium supect stay > 48 hrs due to complexity of date work up, consults, may be due for colonoscopy soon Past Medical History Past Medical History Past Medical History Past Medical History: Hypertension Additional Past Medical Histor: "I THINK I HAVE IBS." Past Surgical History: Other Additional Past Surgical Histo: R KNEE SX Smoking Status: Current Every Day Smoker Alcohol Use: Occasionally Drug Use: None [employer]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 Cardiovascular: HTN Pulmonary: No pertinent hx Heme/Onc: No pertinent hx Rheumatologic: No pertinent hx Infectious disease: No pertinent hx ENT: No pertinent hx Renal/: No pertinent hx Family History Family History: Hypertension Family History: Parent Social History Smoke: <1 pack per day ALCOHOL: occassional Drugs: None Current Medications Current Medications Current Medications Sodium Chloride 1,000 ml @ 100 mls/hr 1X ONCE IV ; Start 06/17/21 at 11:45; Stop 06/17/21 at 21:44 Active Scripts Active Reported Tramadol Hcl 50 Mg Tablet 50 Mg PO Q4HRS PRN Oxycodone Hcl 5 Mg Capsule 5 Mg PO PRN Q4HRS PRN Acetaminophen 500 Mg Tablet 500 Mg PO ONCE Warfarin Sodium 5 Mg Tablet 5 Mg PO ONCE Meloxicam 15 Mg Tablet 1 Tab PO ONCE 30 Days Sudafed 12-Hour (Pseudoephedrine Hcl) 120 Mg Tablet.er 1 Tab PO PRN PRN Probiotic (Lactobacillus Acidophilus) 1 Each Capsule 1 Cap PO DAILY 10 Days Benicar (Olmesartan Medoxomil) 20 Mg Tablet 20 Mg PO DAILY Afrin (Oxymetazoline Hcl) 30 Ml Mclain 0 NS DAILY Omeprazole 20 Mg Capsule.dr 1 Cap PO DAILY Allergies Allergies: Coded Allergies: No Known Medication Allergies (Verified Allergy, Unknown, 03/03/21) benzonatate (Verified Adverse Reaction, Intermediate, 03/03/21) NIGHTMARES ROS Review of System 14 pt ros otherwise neg General: YES: Fatigue, Malaise PSYCHOLOGICAL ROS: No: Anxiety, Behavioral Disorder, Concentration difficultie, Decreased libido, Depression, Disorientation, Hallucinations, Hostility, Irritablity, Memory difficulties, Mood Swings, Obsessive thoughts, Physical abuse, Sexual abuse, Sleep disturbances, Suicidal ideation, Other Eyes: No Blurry vision, No Decreased vision, No Double vision, No Dry eyes, No Excessive tearing, No Eye Pain, No Itchy Eyes, No Loss of vision, No Photophobia, No Scotomata, No Uses contacts, No Uses glasses, No Other HEENT: No: Heacaches, Visual Changes, Hearing change, Nasal congestion, Nasal discharge, Oral lesions, Sinus pain, Sore Throat, Epistaxis, Sneezing, Snoring, Tinnitus, Vertigo, Vocal changes, Other ALLERGY AND IMMUNOLOGY: No: Hives, Insect Bite Sensitivity, Itchy/Watery Eyes, Nasal Congestion, Post Nasal Drip, Seasonal Allergies, Other Hematological and Lymphatic: No: Bleeding Problems, Blood Clots, Blood Transfusions, Brusing, Night Sweats, Pallor, Swollen Lymph Nodes, Other ENDOCRINE: No: Breast Changes, Galactorrhea, Hair Pattern Changes, Hot Flashes, Malaise/lethargy, Mood Swings, Palpitations, Polydipsia/polyuria, Skin Changes, Temperature Intolerance, Unexpected Weight Changes, Other Breast: No New/Changing Breast Lumps, No Nipple changes, No Nipple discharge, No Other Respiratory: No: Cough, Hemoptysis, Orthopnea, Pleuritic Pain, Shortness of breath, SOB with excertion, Sputum Changes, Stridor, Tachypnea, Wheezing, Other Cardiovascular: yes Chest Pain; No Palpitations, No Orthopnea, No Paroxysmal Noc. Dyspnea, No Edema, No Lt Headedness, No Other Gastrointestinal: Yes Nausea, Yes Diarrhea; No Vomiting, No Abdominal Pain, No Constipation, No Melena, No Hematochezia, No Other Genitourinary: No Dysuria, No Frequency, No Incontinence, No Hematuria, No Retention, No Discharge, No Urgency, No Pain, No Flank Pain, No Other, No , No , No , No , No , No , No Musculoskeletal: Yes Muscular Weakness; No Gait Disturbance, No Joint Pain, No Joint Stiffness, No Joint Swelling, No Muscle Pain, No Pain In:, No Swelling In:, No Other Neurological: No Behavorial Changes, No Bowel/Bladder ControlChng, No Confusion, No Dizziness, No Gait Disturbance, No Headaches, No Impaired Coord/balance, No Memory Loss, No Numbness/Tingling, No Seizures, No Speech Problems, No Tremors, No Visual Changes, No Weakness, No Other Skin: Yes Dry Skin; No Eczema, No Hair Changes, No Lumps, No Mole Changes, No Mottling, No Nail Changes, No Pruritus, No Rash, No Skin Lesion Changes, No Other, No Acne Physical Exam Physical Exam Eyes: Conjunctiva normal, no discharge. Neck: Normal range of motion, no stridor. Cardiovascular: No cyanosis // cap refill less than 2 seconds. Lungs & Thorax: Patient is in no respiratory distress, no audible adventitious lung sounds appreciated. Abdomen: Nontender, no abnormalities noted. No masses, no skin discoloration of the abdomen, bowel sounds normal Skin: Warm, dry, no erythema, no rash. Back: No tenderness, no deformities. Extremities: No tenderness, no cyanosis, no clubbing, ROM intact, no edema. Neurologic: Alert and oriented X 3, normal motor function, Psychologic: Affect normal, judgment normal, mood normal. NEUROVASCULAR bundle intact General: Alert, Oriented X3, Cooperative, No acute distress Lungs: Clear to auscultation, Normal air movement Heart: RRR, no thrills, no gallops, no jug vein distention Breasts: Not examined Abdomen: Normal bowel sounds, Soft, No tenderness PELVIC: Examination not indicated Extremities: No cyanosis, No edema Neuro: Normal speech, Cranial nerves 3-12 NL Psych/Mental Status: Mental status NL, Mood NL Vitals Vitals Vital Signs Date Time Temp Pulse Resp B/P (MAP) Pulse Ox O2 Delivery O2 Flow Rate FiO2 06/17/21 10:34 98.3 83 16 101/66 (78) 98 Room Air 98.3 Labs Labs Laboratory Tests Test 06/17/21 10:48 White Blood Count 6.6 x10^3/uL (4.0-11.0) Red Blood Count 4.60 x10^6/uL (3.50-5.40) Hemoglobin 15.4 g/dL (12.0-15.5) Hematocrit 42.4 % (36.0-47.0) Mean Corpuscular Volume 92 fL (79-100) Mean Corpuscular Hemoglobin 33 pg (25-35) Mean Corpuscular Hemoglobin Concent 36 g/dL (31-37) Red Cell Distribution Width 12.8 % (11.5-14.5) Platelet Count 313 x10^3/uL (140-400) Neutrophils (%) (Auto) 60 % (31-73) Lymphocytes (%) (Auto) 24 % (24-48) Monocytes (%) (Auto) 14 % (0-9) Eosinophils (%) (Auto) 2 % (0-3) Basophils (%) (Auto) 1 % (0-3) Neutrophils # (Auto) 4.0 x10^3/uL (1.8-7.7) Lymphocytes # (Auto) 1.6 x10^3/uL (1.0-4.8) Monocytes # (Auto) 0.9 x10^3/uL (0.0-1.1) Eosinophils # (Auto) 0.1 x10^3/uL (0.0-0.7) Basophils # (Auto) 0.0 x10^3/uL (0.0-0.2) Sodium Level 125 mmol/L (136-145) Potassium Level 3.3 mmol/L (3.5-5.1) Chloride Level 87 mmol/L (98-107) Carbon Dioxide Level 19 mmol/L (21-32) Anion Gap 19 (6-14) Blood Urea Nitrogen 36 mg/dL (7-20) Creatinine 2.8 mg/dL (0.6-1.0) Estimated GFR (Cockcroft-Gault) 17.2 BUN/Creatinine Ratio 13 (6-20) Glucose Level 110 mg/dL (70-99) Calcium Level 9.2 mg/dL (8.5-10.1) Total Bilirubin 1.0 mg/dL (0.2-1.0) Aspartate Amino Transf (AST/SGOT) 8 U/L (15-37) Alanine Aminotransferase (ALT/SGPT) 12 U/L (14-59) Alkaline Phosphatase 91 U/L (46-116) Troponin I Quantitative < 0.017 ng/mL (0.000-0.055) Total Protein 7.5 g/dL (6.4-8.2) Albumin 3.8 g/dL (3.4-5.0) Albumin/Globulin Ratio 1.0 (1.0-1.7) Lipase 101 U/L (73-393) Laboratory Tests Test 06/17/21 10:48 White Blood Count 6.6 x10^3/uL (4.0-11.0) Red Blood Count 4.60 x10^6/uL (3.50-5.40) Hemoglobin 15.4 g/dL (12.0-15.5) Hematocrit 42.4 % (36.0-47.0) Mean Corpuscular Volume 92 fL (79-100) Mean Corpuscular Hemoglobin 33 pg (25-35) Mean Corpuscular Hemoglobin Concent 36 g/dL (31-37) Red Cell Distribution Width 12.8 % (11.5-14.5) Platelet Count 313 x10^3/uL (140-400) Neutrophils (%) (Auto) 60 % (31-73) Lymphocytes (%) (Auto) 24 % (24-48) Monocytes (%) (Auto) 14 % (0-9) Eosinophils (%) (Auto) 2 % (0-3) Basophils (%) (Auto) 1 % (0-3) Neutrophils # (Auto) 4.0 x10^3/uL (1.8-7.7) Lymphocytes # (Auto) 1.6 x10^3/uL (1.0-4.8) Monocytes # (Auto) 0.9 x10^3/uL (0.0-1.1) Eosinophils # (Auto) 0.1 x10^3/uL (0.0-0.7) Basophils # (Auto) 0.0 x10^3/uL (0.0-0.2) Sodium Level 125 mmol/L (136-145) Potassium Level 3.3 mmol/L (3.5-5.1) Chloride Level 87 mmol/L (98-107) Carbon Dioxide Level 19 mmol/L (21-32) Anion Gap 19 (6-14) Blood Urea Nitrogen 36 mg/dL (7-20) Creatinine 2.8 mg/dL (0.6-1.0) Estimated GFR (Cockcroft-Gault) 17.2 BUN/Creatinine Ratio 13 (6-20) Glucose Level 110 mg/dL (70-99) Calcium Level 9.2 mg/dL (8.5-10.1) Total Bilirubin 1.0 mg/dL (0.2-1.0) Aspartate Amino Transf (AST/SGOT) 8 U/L (15-37) Alanine Aminotransferase (ALT/SGPT) 12 U/L (14-59) Alkaline Phosphatase 91 U/L (46-116) Troponin I Quantitative < 0.017 ng/mL (0.000-0.055) Total Protein 7.5 g/dL (6.4-8.2) Albumin 3.8 g/dL (3.4-5.0) Albumin/Globulin Ratio 1.0 (1.0-1.7) Lipase 101 U/L (73-393) VTE Prophylaxis Ordered VTE Prophylaxis Devices: Yes VTE Pharmacological Prophylaxi: Yes Assessment/Plan Assessment/Plan impression CRISTÓBAL, with marked electrolyte imbalance, hyponatremia, hypokalemia , GI fluid losses, PLAN iv fluid support, suspect multifactorial due to gi fluid loss Diarrhea Tobacco abuse disorder Atypical chest pain plan ADMIT gi consult Nephrology consult IV FLUID SUPPORT REPLETE K IV trend lytes serum osmolality urine osmolality dvt prophylaxis scd's encouraged smoking cessation urinary spot sodium Justifications for Admission Other Justification JACOBO ROACH MD Jun 17, 2021 12:09
[2021-06-17] MEDS ORDERED: DOCUSATE SODIUM 100 MG CAPSULE. PO PRN (14:15)
[2021-06-17] MEDS ORDERED: POTASSIUM CHLORIDE 20MEQ 100 ML IV ONE (14:15)
[2021-06-17] MEDS ORDERED: ONDANSETRON PF 4 MG/2 ML VIAL. IV PRN (14:15)
[2021-06-17] MEDS ORDERED: 0.9 % SODIUM CHLORIDE 10 ML DISP.SYRIN. IV PRN (14:15)
[2021-06-17] MEDS ORDERED: guaiFENesin ORAL 200 MG/10 ML LIQUID. PO PRN (14:15)
[2021-06-17] MEDS ORDERED: ACETAMINOPHEN 325 MG TABLET. PO PRN (14:15)
[2021-06-17] MEDS ORDERED: ALBUTEROL SULFATE 2.5 MG/3 ML NEBU. NEB PRN (14:15)
[2021-06-17 14:20] VITALS: BP 108/74
[2021-06-17] MEDS: IV NORMAL SALINE 1000ML BAG 1,000 ML IV SCH (15:04)
--- NOTE | 2021-06-17 15:27 | PDOC2 ---
GI CONSULT Date of Service: DATE: 06/17/21 TIME: 15:14 Reason For Consult: Diarrhea HPI: HPI: 60 y/o female with chronically loose stools, generally 2-3 daily w/o blood, etc. End of last week had what seems to be a prodromal illness with malaise, etc. Last weekend increase in stools to 12 or more daily. Did have some darker stools, but was taking PeptoBismol. Some chest pain; seen at [facility] and had apparently negative cardiac evaluation. Today has not stooled per her. Here noted to have decreased renal function and hyponatremia compared to historical values. No prior GI w/u ever. Did have some nausea and vomiting with the current illness. GIFH negative. H/o heartburn for some time, taking daily PPI. No dysphagia. Denies PUD, GB, liver or pancreatic history. Smokes some. Occasional alcohol. No prior EGD. PMH: PMH: HTN, OA. S/P right THR. FH: Family History: CAD, DM, Hypertension, Other (bladder and breast cancers/mom) Social History: Smoke: <1 pack per day ALCOHOL: occassional Drugs: None ROS: GEN: Denies fevers, chills, sweats HEENT: Denies blurred vision, sore throat CV: Denies chest pain RESP: Denies shortness of air, cough GI: Per HPI : Denies hematuria, dysuria ENDO: Denies weight changes NEURO: Denies confusion, dizziness MSK: Denies weakness, joint pain/swelling SKIN: Denies jaundice, pruritus Vitals: Vitals: Vital Signs Date Time Temp Pulse Resp B/P (MAP) Pulse Ox O2 Delivery O2 Flow Rate FiO2 06/17/21 13:00 80 120/73 (89) 99 Room Air 06/17/21 10:34 98.3 16 98.3 Labs: Labs: Laboratory Tests Test 06/17/21 10:48 06/17/21 13:16 White Blood Count 6.6 x10^3/uL (4.0-11.0) Red Blood Count 4.60 x10^6/uL (3.50-5.40) Hemoglobin 15.4 g/dL (12.0-15.5) Hematocrit 42.4 % (36.0-47.0) Mean Corpuscular Volume 92 fL (79-100) Mean Corpuscular Hemoglobin 33 pg (25-35) Mean Corpuscular Hemoglobin Concent 36 g/dL (31-37) Red Cell Distribution Width 12.8 % (11.5-14.5) Platelet Count 313 x10^3/uL (140-400) Neutrophils (%) (Auto) 60 % (31-73) Lymphocytes (%) (Auto) 24 % (24-48) Monocytes (%) (Auto) 14 % (0-9) Eosinophils (%) (Auto) 2 % (0-3) Basophils (%) (Auto) 1 % (0-3) Neutrophils # (Auto) 4.0 x10^3/uL (1.8-7.7) Lymphocytes # (Auto) 1.6 x10^3/uL (1.0-4.8) Monocytes # (Auto) 0.9 x10^3/uL (0.0-1.1) Eosinophils # (Auto) 0.1 x10^3/uL (0.0-0.7) Basophils # (Auto) 0.0 x10^3/uL (0.0-0.2) Sodium Level 125 mmol/L (136-145) Potassium Level 3.3 mmol/L (3.5-5.1) Chloride Level 87 mmol/L (98-107) Carbon Dioxide Level 19 mmol/L (21-32) Anion Gap 19 (6-14) Blood Urea Nitrogen 36 mg/dL (7-20) Creatinine 2.8 mg/dL (0.6-1.0) Estimated GFR (Cockcroft-Gault) 17.2 BUN/Creatinine Ratio 13 (6-20) Glucose Level 110 mg/dL (70-99) Calcium Level 9.2 mg/dL (8.5-10.1) Total Bilirubin 1.0 mg/dL (0.2-1.0) Aspartate Amino Transf (AST/SGOT) 8 U/L (15-37) Alanine Aminotransferase (ALT/SGPT) 12 U/L (14-59) Alkaline Phosphatase 91 U/L (46-116) Troponin I Quantitative < 0.017 ng/mL (0.000-0.055) Total Protein 7.5 g/dL (6.4-8.2) Albumin 3.8 g/dL (3.4-5.0) Albumin/Globulin Ratio 1.0 (1.0-1.7) Lipase 101 U/L (73-393) Thyroid Stimulating Hormone (TSH) 1.685 uIU/mL (0.358-3.74) SARS-CoV-2 Antigen (Rapid) Negative (NEGATIVE) Allergies: Coded Allergies: No Known Medication Allergies (Verified Allergy, Unknown, 03/03/21) benzonatate (Verified Adverse Reaction, Intermediate, 03/03/21) NIGHTMARES Medications: Current Medications Medications (Trade) Dose Ordered Sig/Parvin Route PRN Reason Start Time Stop Time Status Last Admin Dose Admin Sodium Chloride 1,000 ml @ 100 mls/hr 1X ONCE IV 06/17/21 11:45 06/17/21 21:44 06/17/21 11:10 Potassium Chloride/Water 100 ml @ 50 mls/hr 1X ONCE IV 06/17/21 14:15 06/17/21 16:14 06/17/21 15:04 Sodium Chloride 1,000 ml @ 100 mls/hr Q10H IV 06/17/21 14:15 06/17/21 15:04 Imaging: Imaging: None recent. PE: GEN: NAD HEENT: Atraumatic, PERRLA LUNGS: CTAB HEART: RRR, no murmurs ABD: NABS, S/ND/NT, no masses EXTREMITY: No edema SKIN: No rashes, no jaundice NEURO/PSYCH: A & O 3 A/P: A/P: Chronically loose stools; may be a functional issue given normal CBC, etc. Recent diarrheal illness with N, V, improved. Suspect infectious, probably viral. Heartburn c/w GERD. on daily PPI. CRC screening--none. Hydrate, follow renal function. Will check some stool studies, but not likely we will be able to have a specific diagnosis. PPI---PO OK as not vomiting. Merits screening colonoscopy and EGD in the future once better. Other pending. ALISON LARSON MD Jun 17, 2021 15:27
[2021-06-17] MEDS: PANTOPRAZOLE 40 MG TABLET.DR. PO SCH (17:10)
[2021-06-17 18:53] LABS: BILIRUBIN,URINE NEGATIVE (NEG); CLARITY,URINE CLEAR; COLOR,URINE YELLOW; NITRITE,URINE NEGATIVE (NEG); PROTEIN,URINE NEGATIVE (NEG-TRACE); UROBILINOGEN,URINE 0.2 mg/dL (0.2 mg/dL)
[2021-06-17 19:00] VITALS: BP 85/55
[2021-06-17 19:03] LABS: BACTERIA,URINE FEW /HPF (0-FEW); RBC,URINE 0 /HPF (0-2); WBC,URINE OCC /HPF (0-4)
[2021-06-17 19:18] LABS: FECAL OB PT POSITIVE (NEG)
[2021-06-17] MEDS ORDERED: LOSA25TA54 PO (19:40)
[2021-06-17 23:00] VITALS: BP 91/53
[2021-06-18 03:00] VITALS: BP 104/61
[2021-06-18] MEDS: IV NORMAL SALINE 1000ML BAG 1,000 ML IV SCH ×2 (03:51→13:38)
[2021-06-18 07:00] VITALS: BP 115/65
[2021-06-18] MEDS: PANTOPRAZOLE 40 MG TABLET.DR. PO SCH (08:34)
[2021-06-18 08:53] LABS: BASO % 1 % (0-3); EOS # 0.1 x10^3/uL (0.0-0.7); EOS % 2 % (0-3); HEMATOCRIT 39.1 % (36.0-47.0); HEMOGLOBIN 13.9 g/dL (12.0-15.5); LYMPH # 1.2 x10^3/uL (1.0-4.8); LYMPH % 29 % (24-48); MEAN CORPUSCULAR HEMOGLOBIN 33 pg (25-35); MEAN CORPUSCULAR HGB CONC 36 g/dL (31-37); MEAN CORPUSCULAR VOLUME 94 fL (79-100); MONO # 0.6 x10^3/uL (0.0-1.1); MONO % 14 % (0-9); NEUT # 2.2 x10^3/uL (1.8-7.7); NEUT % 54 % (31-73); PLATELET COUNT 289 x10^3/uL (140-400); RED BLOOD COUNT 4.16 x10^6/uL (3.50-5.40); RED CELL DISTRIBUTION WIDTH 12.7 % (11.5-14.5)
[2021-06-18] MEDS ORDERED: ENOXAPARIN 30 MG/0.3 ML SYRINGE. SQ SCH (09:00)
[2021-06-18 09:05] LABS: ALBUMIN 3.2 g/dL (3.4-5.0); CALCIUM 8.8 mg/dL (8.5-10.1); CREATININE 0.9 mg/dL (0.6-1.0); GFR 63.9; TOTAL BILIRUBIN 0.7 mg/dL (0.2-1.0); TOTAL PROTEIN 6.4 g/dL (6.4-8.2)
[2021-06-18 09:08] LABS: POTASSIUM 3.1 mmol/L (3.5-5.1)
--- NOTE | 2021-06-18 10:14 | PDOC2 ---
CONSULT Date of Consult Date of Consult DATE: 06/18/21 TIME: 10:14 Reason for Consult Reason for Consult: CRISTÓBAL Source Source: Chart review History of Present Illness Reason for Visit: Patient is a 60-year-old female who presented to the emergency department on 06/17 with complaints of dark watery stools for the past month. She reports watery diarrhea is her norm for bowel movements for the past several years, and she thinks she might have IBS but has never had any work up for IBS . Her PCP is not aware that she has chronic diarrhea She reports that this past Monday her stools (diarrhea) increased from 3 to 4/day up to more than 10/day and she thought there may be blood in her stool because it seemed darker than normal, denies seeing bright red blood in her stool. She denies abdominal discomfort, denies nausea, states she vomited once on 06/16 after drinking some water. She was at [place] emergency department on 06/16 th night for chest pain and dark diarrhea stool but left AMA because they were not fast enough for her. She reports she was told her chest pain work-up was negative and it was not her heart. Currently she denies chest pain or chest discomfort, denies shortness of breath, denies syncopal episodes or dizziness. Denies any F/C. No urinary complaints Past Medical History Cardiovascular: HTN Pulmonary: No pertinent hx Heme/Onc: No pertinent hx Rheumatologic: No pertinent hx Infectious disease: No pertinent hx ENT: No pertinent hx Renal/: No pertinent hx Family History Family History: Hypertension Social History Social History: Parent <1 pack per day ALCOHOL: occassional Drugs: None Current Problem List Problem List Problems Medical Problems: (1) Acute kidney injury Status: Acute (2) Diarrhea Status: Acute (3) Hyponatremia Status: Acute Current Medications Current Medications Current Medications Sodium Chloride 1,000 ml @ 100 mls/hr 1X ONCE IV Last administered on 06/17/21at 11:10; Start 06/17/21 at 11:45; Stop 06/17/21 at 21:44; Status DC Potassium Chloride/Water 100 ml @ 50 mls/hr 1X ONCE IV Last administered on 06/17/21at 15:04; Start 06/17/21 at 14:15; Stop 06/17/21 at 16:14; Status DC Sodium Chloride (Normal Saline Flush) 3 ml QSHIFT PRN IV AFTER MEDS AND BLOOD DRAWS; Start 06/17/21 at 14:15 Sodium Chloride 1,000 ml @ 100 mls/hr Q10H IV Last administered on 06/18/21at 03:51; Start 06/17/21 at 14:15 Ondansetron HCl (Zofran) 4 mg PRN Q4HRS PRN IV NAUSEA/VOMITING; Start 06/17/21 at 14:15 Acetaminophen (Tylenol) 650 mg PRN Q4HRS PRN PO TEMP OVER 100.4F OR MILD PAIN; Start 06/17/21 at 14:15 Docusate Sodium (Colace) 100 mg PRN BID PRN PO HARD STOOLS; Start 06/17/21 at 14:15 Albuterol Sulfate (Ventolin Neb Soln) 2.5 mg PRN Q4HRS PRN NEB SHORTNESS OF BREATH; Start 06/17/21 at 14:15 Guaifenesin (Robitussin) 200 mg PRN Q4HRS PRN PO COUGH; Start 06/17/21 at 14:15 Enoxaparin Sodium (Lovenox 30mg Syringe) 30 mg Q24H SQ Last administered on 06/18/21at 08:34; Start 06/18/21 at 09:00 Pantoprazole Sodium (Protonix) 40 mg DAILYAC PO Last administered on 06/18/21at 08:34; Start 06/17/21 at 16:00 Potassium Bicarbonate (Potassium Effervescent Tablet) 40 meq 1X ONCE PO ; Start 06/18/21 at 10:30; Stop 06/18/21 at 10:31 Active Scripts Active Reported Losartan Potassium (Losartan Potassium) 25 Mg Tablet 25 Mg PO DAILY Tramadol Hcl 50 Mg Tablet 50 Mg PO Q4HRS PRN Oxycodone Hcl 5 Mg Capsule 5 Mg PO PRN Q4HRS PRN Acetaminophen 500 Mg Tablet 500 Mg PO ONCE Meloxicam 15 Mg Tablet 1 Tab PO ONCE 30 Days Sudafed 12-Hour (Pseudoephedrine Hcl) 120 Mg Tablet.er 1 Tab PO PRN PRN Probiotic (Lactobacillus Acidophilus) 1 Each Capsule 1 Cap PO DAILY 10 Days Benicar (Olmesartan Medoxomil) 20 Mg Tablet 20 Mg PO DAILY Afrin (Oxymetazoline Hcl) 30 Ml [place] 0 NS DAILY Omeprazole 20 Mg Capsule.dr 1 Cap PO DAILY Allergies Allergies: Coded Allergies: No Known Medication Allergies (Verified Allergy, Unknown, 03/03/21) benzonatate (Verified Adverse Reaction, Intermediate, 03/03/21) NIGHTMARES ROS Review of System As per HPI, rest of the ROS is negative Physical Exam Physical Exam General NAD HEEN OM moist Neck Supple Lungs CTA, non labored CV S1S2 Abd Soft, NT, BS + Ext No LE edema Gu no [facility] Neuro Grossly sin; Derm No Rash Psych Cooperative Vital Signs Vital Signs Date Time Temp Pulse Resp B/P (MAP) Pulse Ox O2 Delivery O2 Flow Rate FiO2 06/18/21 07:00 98.3 61 17 115/65 (82) 95 Room Air 98.3 Assessment & Plan CRISTÓBAL - Vasomotor ; Non oliguric, Renal function improved. Supportive care, maintain hydration, Avoid Nephrotoxins, HypoNatremia- suspect due to Intravascular depletion, improved HypoKalemia- replace as indicated Acidosis-POA- resolved Chronically loose stools Recent diarrheal illness with N, V, improved. HTN- Home meds list both losartan and Olmesartan. She should be taking only one of the ARB's. Defer to PCP . BP's Low, agree with holding antihypertensives Labs Labs Laboratory Tests Test 06/17/21 10:48 06/17/21 13:16 06/17/21 18:40 06/18/21 06:15 White Blood Count 6.6 x10^3/uL (4.0-11.0) 4.0 x10^3/uL (4.0-11.0) Red Blood Count 4.60 x10^6/uL (3.50-5.40) 4.16 x10^6/uL (3.50-5.40) Hemoglobin 15.4 g/dL (12.0-15.5) 13.9 g/dL (12.0-15.5) Hematocrit 42.4 % (36.0-47.0) 39.1 % (36.0-47.0) Mean Corpuscular Volume 92 fL (79-100) 94 fL (79-100) Mean Corpuscular Hemoglobin 33 pg (25-35) 33 pg (25-35) Mean Corpuscular Hemoglobin Concent 36 g/dL (31-37) 36 g/dL (31-37) Red Cell Distribution Width 12.8 % (11.5-14.5) 12.7 % (11.5-14.5) Platelet Count 313 x10^3/uL (140-400) 289 x10^3/uL (140-400) Neutrophils (%) (Auto) 60 % (31-73) 54 % (31-73) Lymphocytes (%) (Auto) 24 % (24-48) 29 % (24-48) Monocytes (%) (Auto) 14 % (0-9) 14 % (0-9) Eosinophils (%) (Auto) 2 % (0-3) 2 % (0-3) Basophils (%) (Auto) 1 % (0-3) 1 % (0-3) Neutrophils # (Auto) 4.0 x10^3/uL (1.8-7.7) 2.2 x10^3/uL (1.8-7.7) Lymphocytes # (Auto) 1.6 x10^3/uL (1.0-4.8) 1.2 x10^3/uL (1.0-4.8) Monocytes # (Auto) 0.9 x10^3/uL (0.0-1.1) 0.6 x10^3/uL (0.0-1.1) Eosinophils # (Auto) 0.1 x10^3/uL (0.0-0.7) 0.1 x10^3/uL (0.0-0.7) Basophils # (Auto) 0.0 x10^3/uL (0.0-0.2) 0.0 x10^3/uL (0.0-0.2) Sodium Level 125 mmol/L (136-145) 137 mmol/L (136-145) Potassium Level 3.3 mmol/L (3.5-5.1) 3.1 mmol/L (3.5-5.1) Chloride Level 87 mmol/L (98-107) 102 mmol/L (98-107) Carbon Dioxide Level 19 mmol/L (21-32) 21 mmol/L (21-32) Anion Gap 19 (6-14) 14 (6-14) Blood Urea Nitrogen 36 mg/dL (7-20) 23 mg/dL (7-20) Creatinine 2.8 mg/dL (0.6-1.0) 0.9 mg/dL (0.6-1.0) Estimated GFR (Cockcroft-Gault) 17.2 63.9 BUN/Creatinine Ratio 13 (6-20) 26 (6-20) Glucose Level 110 mg/dL (70-99) 71 mg/dL (70-99) Calcium Level 9.2 mg/dL (8.5-10.1) 8.8 mg/dL (8.5-10.1) Total Bilirubin 1.0 mg/dL (0.2-1.0) 0.7 mg/dL (0.2-1.0) Aspartate Amino Transf (AST/SGOT) 8 U/L (15-37) 12 U/L (15-37) Alanine Aminotransferase (ALT/SGPT) 12 U/L (14-59) 22 U/L (14-59) Alkaline Phosphatase 91 U/L (46-116) 75 U/L (46-116) Troponin I Quantitative < 0.017 ng/mL (0.000-0.055) Total Protein 7.5 g/dL (6.4-8.2) 6.4 g/dL (6.4-8.2) Albumin 3.8 g/dL (3.4-5.0) 3.2 g/dL (3.4-5.0) Albumin/Globulin Ratio 1.0 (1.0-1.7) 1.0 (1.0-1.7) Lipase 101 U/L (73-393) Thyroid Stimulating Hormone (TSH) 1.685 uIU/mL (0.358-3.74) SARS-CoV-2 Antigen (Rapid) Negative (NEGATIVE) Urine Collection Type Unknown Urine Color Yellow Urine Clarity Clear Urine pH 6.0 (<5.0-8.0) Urine Specific [place] <=1.005 (1.000-1.030) Urine Protein Negative mg/dL (NEG-TRACE) Urine Glucose (UA) Negative mg/dL (NEG) Urine Ketones (Stick) Negative mg/dL (NEG) Urine Blood Negative (NEG) Urine Nitrite Negative (NEG) Urine Bilirubin Negative (NEG) Urine Urobilinogen Dipstick 0.2 mg/dL (0.2 mg/dL) Urine Leukocyte Esterase Negative (NEG) Urine RBC 0 /HPF (0-2) Urine WBC Occ /HPF (0-4) Urine Squamous Epithelial Cells Mod /LPF Urine Bacteria Few /HPF (0-FEW) Stool Occult Blood Positive (NEG) Laboratory Tests Test 06/17/21 10:48 06/17/21 13:16 06/17/21 18:40 06/18/21 06:15 White Blood Count 6.6 x10^3/uL (4.0-11.0) 4.0 x10^3/uL (4.0-11.0) Red Blood Count 4.60 x10^6/uL (3.50-5.40) 4.16 x10^6/uL (3.50-5.40) Hemoglobin 15.4 g/dL (12.0-15.5) 13.9 g/dL (12.0-15.5) Hematocrit 42.4 % (36.0-47.0) 39.1 % (36.0-47.0) Mean Corpuscular Volume 92 fL (79-100) 94 fL (79-100) Mean Corpuscular Hemoglobin 33 pg (25-35) 33 pg (25-35) Mean Corpuscular Hemoglobin Concent 36 g/dL (31-37) 36 g/dL (31-37) Red Cell Distribution Width 12.8 % (11.5-14.5) 12.7 % (11.5-14.5) Platelet Count 313 x10^3/uL (140-400) 289 x10^3/uL (140-400) Neutrophils (%) (Auto) 60 % (31-73) 54 % (31-73) Lymphocytes (%) (Auto) 24 % (24-48) 29 % (24-48) Monocytes (%) (Auto) 14 % (0-9) 14 % (0-9) Eosinophils (%) (Auto) 2 % (0-3) 2 % (0-3) Basophils (%) (Auto) 1 % (0-3) 1 % (0-3) Neutrophils # (Auto) 4.0 x10^3/uL (1.8-7.7) 2.2 x10^3/uL (1.8-7.7) Lymphocytes # (Auto) 1.6 x10^3/uL (1.0-4.8) 1.2 x10^3/uL (1.0-4.8) Monocytes # (Auto) 0.9 x10^3/uL (0.0-1.1) 0.6 x10^3/uL (0.0-1.1) Eosinophils # (Auto) 0.1 x10^3/uL (0.0-0.7) 0.1 x10^3/uL (0.0-0.7) Basophils # (Auto) 0.0 x10^3/uL (0.0-0.2) 0.0 x10^3/uL (0.0-0.2) Sodium Level 125 mmol/L (136-145) 137 mmol/L (136-145) Potassium Level 3.3 mmol/L (3.5-5.1) 3.1 mmol/L (3.5-5.1) Chloride Level 87 mmol/L (98-107) 102 mmol/L (98-107) Carbon Dioxide Level 19 mmol/L (21-32) 21 mmol/L (21-32) Anion Gap 19 (6-14) 14 (6-14) Blood Urea Nitrogen 36 mg/dL (7-20) 23 mg/dL (7-20) Creatinine 2.8 mg/dL (0.6-1.0) 0.9 mg/dL (0.6-1.0) Estimated GFR (Cockcroft-Gault) 17.2 63.9 BUN/Creatinine Ratio 13 (6-20) 26 (6-20) Glucose Level 110 mg/dL (70-99) 71 mg/dL (70-99) Calcium Level 9.2 mg/dL (8.5-10.1) 8.8 mg/dL (8.5-10.1) Total Bilirubin 1.0 mg/dL (0.2-1.0) 0.7 mg/dL (0.2-1.0) Aspartate Amino Transf (AST/SGOT) 8 U/L (15-37) 12 U/L (15-37) Alanine Aminotransferase (ALT/SGPT) 12 U/L (14-59) 22 U/L (14-59) Alkaline Phosphatase 91 U/L (46-116) 75 U/L (46-116) Troponin I Quantitative < 0.017 ng/mL (0.000-0.055) Total Protein 7.5 g/dL (6.4-8.2) 6.4 g/dL (6.4-8.2) Albumin 3.8 g/dL (3.4-5.0) 3.2 g/dL (3.4-5.0) Albumin/Globulin Ratio 1.0 (1.0-1.7) 1.0 (1.0-1.7) Lipase 101 U/L (73-393) Thyroid Stimulating Hormone (TSH) 1.685 uIU/mL (0.358-3.74) SARS-CoV-2 Antigen (Rapid) Negative (NEGATIVE) Urine Collection Type Unknown Urine Color Yellow Urine Clarity Clear Urine pH 6.0 (<5.0-8.0) Urine Specific [place] <=1.005 (1.000-1.030) Urine Protein Negative mg/dL (NEG-TRACE) Urine Glucose (UA) Negative mg/dL (NEG) Urine Ketones (Stick) Negative mg/dL (NEG) Urine Blood Negative (NEG) Urine Nitrite Negative (NEG) Urine Bilirubin Negative (NEG) Urine Urobilinogen Dipstick 0.2 mg/dL (0.2 mg/dL) Urine Leukocyte Esterase Negative (NEG) Urine RBC 0 /HPF (0-2) Urine WBC Occ /HPF (0-4) Urine Squamous Epithelial Cells Mod /LPF Urine Bacteria Few /HPF (0-FEW) Stool Occult Blood Positive (NEG) Review All relevant outside records, renal labs, imaging studies, telemetry/EKG's were reviewed. SONAL ARITA MD Jun 18, 2021 10:14
[2021-06-18] MEDS ORDERED: POTASSIUM BICARB 20 MEQ EFFERVESCENT TABLET. PO ONE ×2 (10:30→13:00)
[2021-06-18 11:00] VITALS: BP 114/73
--- NOTE | 2021-06-18 11:54 | PDOC ---
[employer] PROGRESS NOTE Date of Service DOS: DATE: 06/18/21 TIME: 11:48 Chief Complaint Chief Complaint CRISTÓBAL, with marked electrolyte imbalance, hyponatremia, hypokalemia , GI fluid losses, PLAN iv fluid support, suspect multifactorial due to gi fluid loss Diarrhea Tobacco abuse disorder Atypical chest pain Plan: ADMIT gi consult Nephrology consult IV FLUID SUPPORT REPLETE K IV trend lytes serum osmolality urine osmolality dvt prophylaxis scd's encouraged smoking cessation urinary spot sodium History of Present Illness History of Present Illness 60-year-old female who presented to the emergency department with complaints of dark watery stools watery diarrhea is her normal for bowel movements, states she has had diarrhea stools on every stool for the past several years, patient thinks she might have IBS // never been diagnosed nor worked up for IBS problems. this past Monday her diarrhea stools increased from 3 to 4/day up to more than 10/day saw blood in her stool because it seemed darker than normal, denies seeing bright red blood LABS Na 125, k 3.3 cl 87, cr 2.8 bun 36 denies abdominal discomfort, denies nausea, states she vomited once yesterday she was at [place] emergency department last night 06-16 for chest pain and dark diarrhea stool but left AMA because "they were not fast enough" work up there was neg for angina 06/18/2021: Afebrile. Kidney function improved with IV fluids. Denies any further nausea, vomiting, or diarrhea. Enjoying lunch at the time my evaluation per GI, stool studies pending but unlikely; possible functional diarrhea. She feels comfortable discharging home today. Greater than 30 minutes spent managing the discharge of this patient. Vitals/I&O Vitals/I&O: Vital Signs Date Time Temp Pulse Resp B/P (MAP) Pulse Ox O2 Delivery O2 Flow Rate FiO2 06/18/21 08:00 Room Air 06/18/21 07:00 98.3 61 17 115/65 (82) 95 98.3 I & O 06/17/21 06/17/21 06/18/21 15:00 23:00 07:00 Intake Total 100 ml Balance 100 ml Physical Exam General: Alert, Oriented X3, Cooperative, No acute distress Heart: Regular rate Lungs: Clear Abdomen: Normal bowel sounds, Soft, No tenderness Extremities: No cyanosis, No edema Skin: No rashes, No breakdown Labs Labs: Laboratory Tests Test 06/17/21 13:16 06/17/21 18:40 06/18/21 06:15 SARS-CoV-2 Antigen (Rapid) Negative (NEGATIVE) Urine Collection Type Unknown Urine Color Yellow Urine Clarity Clear Urine pH 6.0 (<5.0-8.0) Urine Specific [place] <=1.005 (1.000-1.030) Urine Protein Negative mg/dL (NEG-TRACE) Urine Glucose (UA) Negative mg/dL (NEG) Urine Ketones (Stick) Negative mg/dL (NEG) Urine Blood Negative (NEG) Urine Nitrite Negative (NEG) Urine Bilirubin Negative (NEG) Urine Urobilinogen Dipstick 0.2 mg/dL (0.2 mg/dL) Urine Leukocyte Esterase Negative (NEG) Urine RBC 0 /HPF (0-2) Urine WBC Occ /HPF (0-4) Urine Squamous Epithelial Cells Mod /LPF Urine Bacteria Few /HPF (0-FEW) Stool Occult Blood Positive (NEG) White Blood Count 4.0 x10^3/uL (4.0-11.0) Red Blood Count 4.16 x10^6/uL (3.50-5.40) Hemoglobin 13.9 g/dL (12.0-15.5) Hematocrit 39.1 % (36.0-47.0) Mean Corpuscular Volume 94 fL (79-100) Mean Corpuscular Hemoglobin 33 pg (25-35) Mean Corpuscular Hemoglobin Concent 36 g/dL (31-37) Red Cell Distribution Width 12.7 % (11.5-14.5) Platelet Count 289 x10^3/uL (140-400) Neutrophils (%) (Auto) 54 % (31-73) Lymphocytes (%) (Auto) 29 % (24-48) Monocytes (%) (Auto) 14 % (0-9) Eosinophils (%) (Auto) 2 % (0-3) Basophils (%) (Auto) 1 % (0-3) Neutrophils # (Auto) 2.2 x10^3/uL (1.8-7.7) Lymphocytes # (Auto) 1.2 x10^3/uL (1.0-4.8) Monocytes # (Auto) 0.6 x10^3/uL (0.0-1.1) Eosinophils # (Auto) 0.1 x10^3/uL (0.0-0.7) Basophils # (Auto) 0.0 x10^3/uL (0.0-0.2) Sodium Level 137 mmol/L (136-145) Potassium Level 3.1 mmol/L (3.5-5.1) Chloride Level 102 mmol/L (98-107) Carbon Dioxide Level 21 mmol/L (21-32) Anion Gap 14 (6-14) Blood Urea Nitrogen 23 mg/dL (7-20) Creatinine 0.9 mg/dL (0.6-1.0) Estimated GFR (Cockcroft-Gault) 63.9 BUN/Creatinine Ratio 26 (6-20) Glucose Level 71 mg/dL (70-99) Calcium Level 8.8 mg/dL (8.5-10.1) Total Bilirubin 0.7 mg/dL (0.2-1.0) Aspartate Amino Transf (AST/SGOT) 12 U/L (15-37) Alanine Aminotransferase (ALT/SGPT) 22 U/L (14-59) Alkaline Phosphatase 75 U/L (46-116) Total Protein 6.4 g/dL (6.4-8.2) Albumin 3.2 g/dL (3.4-5.0) Albumin/Globulin Ratio 1.0 (1.0-1.7) Assessment and Plan Assessmemt and Plan Problems Medical Problems: (1) Acute kidney injury Status: Acute (2) Diarrhea Status: Acute (3) Hyponatremia Status: Acute Comment Review of Relevant I have reviewed the following items rosa (where applicable) has been applied. Medications: Current Medications Medications (Trade) Dose Ordered Sig/Parvin Route PRN Reason Start Time Stop Time Status Last Admin Dose Admin Potassium Chloride/Water 100 ml @ 50 mls/hr 1X ONCE IV 06/17/21 14:15 06/17/21 16:14 DC 06/17/21 15:04 Sodium Chloride 1,000 ml @ 100 mls/hr Q10H IV 06/17/21 14:15 06/18/21 03:51 Enoxaparin Sodium (Lovenox 30mg Syringe) 30 mg Q24H SQ 06/18/21 09:00 06/18/21 08:34 Pantoprazole Sodium (Protonix) 40 mg DAILYAC PO 06/17/21 16:00 06/18/21 08:34 Potassium Bicarbonate (Potassium Effervescent Tablet) 40 meq 1X ONCE PO 06/18/21 10:30 06/18/21 10:31 DC 06/18/21 10:21 Justifications for Admission Other Justification electrolyte imbalance MARIA DEL CARMEN VALLE MD Jun 18, 2021 11:54
--- NOTE | 2021-06-18 12:31 | PDOC ---
Date of Service: DATE: 06/18/21 TIME: 12:24 Subjective: Subjective: Tolerating diet. No abd pain. Loose stools for years, but worse since last Monday - watery stools throughout day and night - slowing some before admission. Had three overnight. Wonders if itchy palms, hives, and swelling in face/lips (all prior to admission) have anything to do with this. Objective: Vital Signs: Vital Signs Date Time Temp Pulse Resp B/P (MAP) Pulse Ox O2 Delivery O2 Flow Rate FiO2 06/18/21 08:00 Room Air 06/18/21 07:00 98.3 61 17 115/65 (82) 95 98.3 Labs: Laboratory Tests Test 06/17/21 13:16 06/17/21 18:40 06/18/21 06:15 SARS-CoV-2 Antigen (Rapid) Negative Urine Collection Type Unknown Urine Color Yellow Urine Clarity Clear Urine pH 6.0 Urine Specific [place] <=1.005 Urine Protein Negative mg/dL Urine Glucose (UA) Negative mg/dL Urine Ketones (Stick) Negative mg/dL Urine Blood Negative Urine Nitrite Negative Urine Bilirubin Negative Urine Urobilinogen Dipstick 0.2 mg/dL Urine Leukocyte Esterase Negative Urine RBC 0 /HPF Urine WBC Occ /HPF Urine Squamous Epithelial Cells Mod /LPF Urine Bacteria Few /HPF Stool Occult Blood Positive White Blood Count 4.0 x10^3/uL Red Blood Count 4.16 x10^6/uL Hemoglobin 13.9 g/dL Hematocrit 39.1 % Mean Corpuscular Volume 94 fL Mean Corpuscular Hemoglobin 33 pg Mean Corpuscular Hemoglobin Concent 36 g/dL Red Cell Distribution Width 12.7 % Platelet Count 289 x10^3/uL Neutrophils (%) (Auto) 54 % Lymphocytes (%) (Auto) 29 % Monocytes (%) (Auto) 14 % Eosinophils (%) (Auto) 2 % Basophils (%) (Auto) 1 % Neutrophils # (Auto) 2.2 x10^3/uL Lymphocytes # (Auto) 1.2 x10^3/uL Monocytes # (Auto) 0.6 x10^3/uL Eosinophils # (Auto) 0.1 x10^3/uL Basophils # (Auto) 0.0 x10^3/uL Sodium Level 137 mmol/L Potassium Level 3.1 mmol/L Chloride Level 102 mmol/L Carbon Dioxide Level 21 mmol/L Anion Gap 14 Blood Urea Nitrogen 23 mg/dL Creatinine 0.9 mg/dL Estimated GFR (Cockcroft-Gault) 63.9 BUN/Creatinine Ratio 26 Glucose Level 71 mg/dL Calcium Level 8.8 mg/dL Total Bilirubin 0.7 mg/dL Aspartate Amino Transf (AST/SGOT) 12 U/L Alanine Aminotransferase (ALT/SGPT) 22 U/L Alkaline Phosphatase 75 U/L Total Protein 6.4 g/dL Albumin 3.2 g/dL Albumin/Globulin Ratio 1.0 FECAL WBC,GRAM STAIN Final WBCS MANY PE: GEN: NAD LUNGS: CTAB HEART: RRR ABD: NABS, S/ND/NT NEURO/PSYCH: A & O 3 A/P: Chronic loose stools, recent diarrheal illness - slowing CRISTÓBAL - resolving H/o GERD Rapid COVID negative -- Await stool studies. Outpt EGD and colonoscopy. Justicifation of Admission Dx: Justifications for Admission: Justification of Admission Dx: Yes GOSIA ESPINO Jun 18, 2021 12:31
--- NOTE | 2021-06-18 12:55 | PDOC3 ---
Discharge Summary Visit Information Date of Admission: Jun 17, 2021 Date of Discharge: Jun 18, 2021 Final Diagnosis Problems Medical Problems: (1) Acute kidney injury Status: Acute (2) Diarrhea Status: Acute (3) Hyponatremia Status: Acute Brief Hospital Course Allergies Allergies Coded Allergies Type Severity Reaction Last Updated Verified No Known Medication Allergies Allergy Unknown 03/03/21 Yes benzonatate Adverse Reaction Intermediate 03/03/21 Yes Vital Signs Vital Signs Date Time Temp Pulse Resp B/P (MAP) Pulse Ox O2 Delivery O2 Flow Rate FiO2 06/18/21 08:00 Room Air 06/18/21 07:00 98.3 61 17 115/65 (82) 95 98.3 Lab Results Laboratory Tests Test 06/17/21 10:48 06/17/21 13:16 06/17/21 18:40 06/18/21 06:15 White Blood Count 6.6 x10^3/uL (4.0-11.0) 4.0 x10^3/uL (4.0-11.0) Red Blood Count 4.60 x10^6/uL (3.50-5.40) 4.16 x10^6/uL (3.50-5.40) Hemoglobin 15.4 g/dL (12.0-15.5) 13.9 g/dL (12.0-15.5) Hematocrit 42.4 % (36.0-47.0) 39.1 % (36.0-47.0) Mean Corpuscular Volume 92 fL (79-100) 94 fL (79-100) Mean Corpuscular Hemoglobin 33 pg (25-35) 33 pg (25-35) Mean Corpuscular Hemoglobin Concent 36 g/dL (31-37) 36 g/dL (31-37) Red Cell Distribution Width 12.8 % (11.5-14.5) 12.7 % (11.5-14.5) Platelet Count 313 x10^3/uL (140-400) 289 x10^3/uL (140-400) Neutrophils (%) (Auto) 60 % (31-73) 54 % (31-73) Lymphocytes (%) (Auto) 24 % (24-48) 29 % (24-48) Monocytes (%) (Auto) 14 % (0-9) 14 % (0-9) Eosinophils (%) (Auto) 2 % (0-3) 2 % (0-3) Basophils (%) (Auto) 1 % (0-3) 1 % (0-3) Neutrophils # (Auto) 4.0 x10^3/uL (1.8-7.7) 2.2 x10^3/uL (1.8-7.7) Lymphocytes # (Auto) 1.6 x10^3/uL (1.0-4.8) 1.2 x10^3/uL (1.0-4.8) Monocytes # (Auto) 0.9 x10^3/uL (0.0-1.1) 0.6 x10^3/uL (0.0-1.1) Eosinophils # (Auto) 0.1 x10^3/uL (0.0-0.7) 0.1 x10^3/uL (0.0-0.7) Basophils # (Auto) 0.0 x10^3/uL (0.0-0.2) 0.0 x10^3/uL (0.0-0.2) Sodium Level 125 mmol/L (136-145) 137 mmol/L (136-145) Potassium Level 3.3 mmol/L (3.5-5.1) 3.1 mmol/L (3.5-5.1) Chloride Level 87 mmol/L (98-107) 102 mmol/L (98-107) Carbon Dioxide Level 19 mmol/L (21-32) 21 mmol/L (21-32) Anion Gap 19 (6-14) 14 (6-14) Blood Urea Nitrogen 36 mg/dL (7-20) 23 mg/dL (7-20) Creatinine 2.8 mg/dL (0.6-1.0) 0.9 mg/dL (0.6-1.0) Estimated GFR (Cockcroft-Gault) 17.2 63.9 BUN/Creatinine Ratio 13 (6-20) 26 (6-20) Glucose Level 110 mg/dL (70-99) 71 mg/dL (70-99) Plasma/Serum Osmolality 265 mOsmol/kg (275-295) Calcium Level 9.2 mg/dL (8.5-10.1) 8.8 mg/dL (8.5-10.1) Total Bilirubin 1.0 mg/dL (0.2-1.0) 0.7 mg/dL (0.2-1.0) Aspartate Amino Transf (AST/SGOT) 8 U/L (15-37) 12 U/L (15-37) Alanine Aminotransferase (ALT/SGPT) 12 U/L (14-59) 22 U/L (14-59) Alkaline Phosphatase 91 U/L (46-116) 75 U/L (46-116) Troponin I Quantitative < 0.017 ng/mL (0.000-0.055) Total Protein 7.5 g/dL (6.4-8.2) 6.4 g/dL (6.4-8.2) Albumin 3.8 g/dL (3.4-5.0) 3.2 g/dL (3.4-5.0) Albumin/Globulin Ratio 1.0 (1.0-1.7) 1.0 (1.0-1.7) Lipase 101 U/L (73-393) Thyroid Stimulating Hormone (TSH) 1.685 uIU/mL (0.358-3.74) SARS-CoV-2 Antigen (Rapid) Negative (NEGATIVE) Urine Collection Type Unknown Urine Color Yellow Urine Clarity Clear Urine pH 6.0 (<5.0-8.0) Urine Specific [place] <=1.005 (1.000-1.030) Urine Protein Negative mg/dL (NEG-TRACE) Urine Glucose (UA) Negative mg/dL (NEG) Urine Ketones (Stick) Negative mg/dL (NEG) Urine Blood Negative (NEG) Urine Nitrite Negative (NEG) Urine Bilirubin Negative (NEG) Urine Urobilinogen Dipstick 0.2 mg/dL (0.2 mg/dL) Urine Leukocyte Esterase Negative (NEG) Urine RBC 0 /HPF (0-2) Urine WBC Occ /HPF (0-4) Urine Squamous Epithelial Cells Mod /LPF Urine Bacteria Few /HPF (0-FEW) Stool Occult Blood Positive (NEG) Laboratory Tests Test 06/17/21 13:16 06/17/21 18:40 06/18/21 06:15 SARS-CoV-2 Antigen (Rapid) Negative (NEGATIVE) Urine Collection Type Unknown Urine Color Yellow Urine Clarity Clear Urine pH 6.0 (<5.0-8.0) Urine Specific [place] <=1.005 (1.000-1.030) Urine Protein Negative mg/dL (NEG-TRACE) Urine Glucose (UA) Negative mg/dL (NEG) Urine Ketones (Stick) Negative mg/dL (NEG) Urine Blood Negative (NEG) Urine Nitrite Negative (NEG) Urine Bilirubin Negative (NEG) Urine Urobilinogen Dipstick 0.2 mg/dL (0.2 mg/dL) Urine Leukocyte Esterase Negative (NEG) Urine RBC 0 /HPF (0-2) Urine WBC Occ /HPF (0-4) Urine Squamous Epithelial Cells Mod /LPF Urine Bacteria Few /HPF (0-FEW) Stool Occult Blood Positive (NEG) White Blood Count 4.0 x10^3/uL (4.0-11.0) Red Blood Count 4.16 x10^6/uL (3.50-5.40) Hemoglobin 13.9 g/dL (12.0-15.5) Hematocrit 39.1 % (36.0-47.0) Mean Corpuscular Volume 94 fL (79-100) Mean Corpuscular Hemoglobin 33 pg (25-35) Mean Corpuscular Hemoglobin Concent 36 g/dL (31-37) Red Cell Distribution Width 12.7 % (11.5-14.5) Platelet Count 289 x10^3/uL (140-400) Neutrophils (%) (Auto) 54 % (31-73) Lymphocytes (%) (Auto) 29 % (24-48) Monocytes (%) (Auto) 14 % (0-9) Eosinophils (%) (Auto) 2 % (0-3) Basophils (%) (Auto) 1 % (0-3) Neutrophils # (Auto) 2.2 x10^3/uL (1.8-7.7) Lymphocytes # (Auto) 1.2 x10^3/uL (1.0-4.8) Monocytes # (Auto) 0.6 x10^3/uL (0.0-1.1) Eosinophils # (Auto) 0.1 x10^3/uL (0.0-0.7) Basophils # (Auto) 0.0 x10^3/uL (0.0-0.2) Sodium Level 137 mmol/L (136-145) Potassium Level 3.1 mmol/L (3.5-5.1) Chloride Level 102 mmol/L (98-107) Carbon Dioxide Level 21 mmol/L (21-32) Anion Gap 14 (6-14) Blood Urea Nitrogen 23 mg/dL (7-20) Creatinine 0.9 mg/dL (0.6-1.0) Estimated GFR (Cockcroft-Gault) 63.9 BUN/Creatinine Ratio 26 (6-20) Glucose Level 71 mg/dL (70-99) Calcium Level 8.8 mg/dL (8.5-10.1) Total Bilirubin 0.7 mg/dL (0.2-1.0) Aspartate Amino Transf (AST/SGOT) 12 U/L (15-37) Alanine Aminotransferase (ALT/SGPT) 22 U/L (14-59) Alkaline Phosphatase 75 U/L (46-116) Total Protein 6.4 g/dL (6.4-8.2) Albumin 3.2 g/dL (3.4-5.0) Albumin/Globulin Ratio 1.0 (1.0-1.7) Brief Hospital Course CRISTÓBAL due to vasomotor nephropathy Diarrhea Tobacco abuse disorder Atypical chest pain Plan: ADMIT gi consult Nephrology consult IV FLUID SUPPORT REPLETE K IV trend lytes serum osmolality urine osmolality dvt prophylaxis scd's encouraged smoking cessation urinary spot sodium 60-year-old female who presented to the emergency department with complaints of dark watery stools watery diarrhea is her normal for bowel movements, states she has had diarrhea stools on every stool for the past several years, patient thinks she might have IBS // never been diagnosed nor worked up for IBS problems. this past Monday her diarrhea stools increased from 3 to 4/day up to more than 10/day saw blood in her stool because it seemed darker than normal, denies seeing bright red blood LABS Na 125, k 3.3 cl 87, cr 2.8 bun 36 denies abdominal discomfort, denies nausea, states she vomited once yesterday she was at [place] emergency department last night 9-29 for chest pain and dark diarrhea stool but left AMA because "they were not fast enough" work up there was neg for angina 06/18/2021: Afebrile. Kidney function improved with IV fluids. Denies any further nausea, vomiting, or diarrhea. Enjoying lunch at the time my evaluation per GI, stool studies pending but unlikely; possible functional diarrhea. She feels comfortable discharging home today. Greater than 30 minutes spent joanne ging the discharge of this patient. Discharge Information Condition at Discharge: Improved Disposition/Orders: D/C to Home Scheduled Acetaminophen (Acetaminophen) 500 Mg Tablet, 500 MG PO ONCE for PRE OP, (Reported) Entered as Reported by: Kimberlee Fritz on 03/02/21 07 Lactobacillus Acidophilus (Probiotic) 1 Each Capsule, 1 CAP PO DAILY for SUPPLEMENT for 10 Days, #10 Ref 0 (Reported) Entered as Reported by: OREN VIVAS on 02/24/211450 Losartan Potassium (Losartan Potassium ) 25 Mg Tablet, 25 MG PO DAILY for HYPERTENSION, (Reported) Entered as Reported by: LOREN CHINO RN on 06/17/211939 Last Taken: Unknown Dose on 06/16/21 Last Action: New Order on 06/17/211939 by LOREN CHINO RN Meloxicam (Meloxicam) 15 Mg Tablet, 1 TAB PO ONCE for PREOP for 30 Days, Ref 0 (Reported) Entered as Reported by: Kimberlee Fritz on 03/02/21 0743 Last Action: Reviewed on 06/17/211939 by LOREN CHINO RN Olmesartan Medoxomil (Benicar) 20 Mg Tablet, 20 MG PO DAILY for HYPERTENSION, (Reported) Entered as Reported by: OREN VIVAS on 02/24/211450 Last Action: Reviewed on 06/17/211939 by LOREN CHINO RN Omeprazole (Omeprazole) 20 Mg Capsule.dr, 1 CAP PO DAILY for GERD, #30 Ref 5 (Reported) Entered as Reported by: OREN VIVAS on 02/24/211449 Last Action: Reviewed on 06/17/211939 by LOREN CHINO RN Oxymetazoline Hcl (Afrin) 30 Ml [place], 0 NS DAILY for ALLERGIES, (Reported) Entered as Reported by: OREN VIVAS on 02/24/211449 Scheduled PRN Oxycodone Hcl (Oxycodone Hcl) 5 Mg Capsule, 5 MG PO PRN Q4HRS PRN for PAIN, #40 Ref 0 (Reported) Entered as Reported by: ZAK TORRES on 03/03/21 1240 Pseudoephedrine Hcl (Sudafed 12-Hour) 120 Mg Tablet.er, 1 TAB PO PRN PRN for ALLERGIES, #20 (Reported) Entered as Reported by: OREN VIVAS on 02/24/21 1452 Last Action: Reviewed on 06/17/211939 by LOREN CHINO, RN Tramadol Hcl (Tramadol Hcl) 50 Mg Tablet, 50 MG PO Q4HRS PRN for PAIN, #40 (Reported) Entered as Reported by: ZAK TORRES on 03/03/21 1241 Discontinued Medications Warfarin Sodium (Warfarin Sodium) 5 Mg Tablet, 5 MG PO ONCE for PREOP, #30 (Reported) Discontinued Reason: COMPLETED Entered as Reported by: Kimberlee Fritz on 03/02/21 0743 Last Action: Discontinued on 06/17/21 1603 by Pretty Bro RPH Justicifation of Admission Dx: Justifications for Admission: Justification of Admission Dx: Yes MARIA DEL CARMEN AVLLE MD Jun 18, 2021 12:55
--- NOTE | 2021-06-18 12:58 | NUR ---
SW following. Discussed with RN, pt from home, room air, regular diet, rapid COVID-19 negative. Discharge order for home with self care. RN advised no SW needs at this time.
[2021-06-18 15:00] VITALS: BP 102/66
--- NOTE | 2021-06-18 16:35 | NUR ---
Patient escorted out to personal vehicle ambulating with Ingrid to ER entrance with belongings, discharge directions given with education. IV discontinued by this RN.
== END 2021-06-18 16:35 | disposition home or self-care (01) | DRG 391 ==
LOC: ER 10:13 → ED HOLD 13:45 → 5 NORTH 14:07
PROVIDERS: ADMIT Family Medicine; ATTEND Family Medicine
DX: K58.0 Irritable bowel syndrome with diarrhea (principal); N17.0 Acute kidney failure with tubular necrosis; E87.1 Hypo-osmolality and hyponatremia; E87.6 Hypokalemia; F17.210 Nicotine dependence, cigarettes, uncomplicated; I10 Essential (primary) hypertension; Z20.822 Contact with and (suspected) exposure to COVID-19; Z53.29 Procedure and treatment not carried out because of patient's decision for other reasons; Z82.49 Family history of ischemic heart disease and other diseases of the circulatory system; Z82.5 Family history of asthma and other chronic lower respiratory diseases; Z83.3 Family history of diabetes mellitus; K21.9 Gastro-esophageal reflux disease without esophagitis; R07.89 Other chest pain
CPT/HCPCS: 36415; 80053; 81001; 82274; 83631; 83690; 83930; 83935; 84300; 84443; 84484; 85025; 87205; 87426; 87505; 93005; 96361; 96365; J1650; J3480; J7030; U0003; U0005; 99285-25; G0378

== ENCOUNTER → 2021-10-13 | Day surgery (SDC) | payer OTHER ==
[~2021-10-13] VITALS: Ht 170.2 cm; Wt 82.0 kg
[~2021-10-13] MED LIST changes: +HYDROmorphone 2 MG/ML INJ. IVP PRN; +IV RINGERS,LACTATED 1000ML 1,000 ML IV SCH; +LOSA25TA54 PO; +MORPHINE SULFATE 2 MG/ML INJ. IVP PRN; +PROCHLORPERAZINE 10 MG/2 ML VIAL. IVP PRN; +PROPOFOL 10 MG/ML (20ML) VIAL. IV ONE; +fentaNYL PF VIAL 100 MCG/2 ML VIAL IVP PRN
[2021-10-13 06:52] VITALS: BP 168/100
[2021-10-13 08:50] VITALS: BP 184/91
--- NOTE | 2021-10-13 14:57 | CONS ---
DATE OF CONSULTATION: 10/13/2021 UPDATED HISTORY AND PHYSICAL REFERRING PHYSICIAN: Dr. Juan Mata. REASON FOR CONSULTATION: Diarrhea. HISTORY OF PRESENT ILLNESS: A 61-year-old female whose past medical history is significant for hypertension, sleep apnea, gastroesophageal reflux disease seen with persistent diarrhea. She is having up to 6 stools daily, which are nonbloody, meals to exacerbate the pain and cramping. Weight is stable despite the poor appetite. No family history of IBD, celiac or colon cancer is noted. She has had hives with diarrhea, which has been controlled with Benadryl. With continued issues, she requests additional evaluation. PAST MEDICAL HISTORY: Hypertension, sleep apnea, gastroesophageal reflux disease. ALLERGIES: None. MEDICATIONS: Omeprazole and Sudafed. FAMILY HISTORY: Significant for hypertension and diabetes with her father and [place] with father, breast cancer with her mother. SOCIAL HISTORY: She is a smoker, social drinker. PAST SURGICAL HISTORY: Significant for joint replacement. REVIEW OF SYSTEMS: Per records. PHYSICAL EXAMINATION: GENERAL: Reveals a well-nourished, well-developed female who is alert, cooperative, in no acute distress. VITAL SIGNS: Temperature is 98, pulse 60, respiratory rate 20. LUNGS: Clear. CARDIOVASCULAR: Reveals an S1, S2, without S3, S4 or appreciable murmur. ABDOMEN: Soft abdomen, normal bowel sounds, without appreciable hepatosplenomegaly. EXTREMITIES: No cyanosis, clubbing or edema. IMPRESSION: Diarrhea, etiology is to be determined. Differential includes malabsorption celiac, exocrine pancreatic insufficiency, colon cancer, colon polyps, inflammatory bowel disease, collagenous colitis. Therefore, recommend upper scope and lower scope with biopsies. Risks and benefits of procedure have been discussed with the patient including risk of hemorrhage and perforation and is willing to proceed at this time. I would like to thank Dr. Mata for allowing us to consult and participate in the patient's care. APRIL SALAZAR: Ponce TID: [id number]
--- NOTE | 2021-10-14 16:07 | PATHOLOGY ---
[facility] Accession Number: [id number] . 01 Material submitted: . PART A: duodenum - DUODENAL BIOPSY PART B: colon - RANDOM COLON BIOPSIES . 01 Clinical history: . DIARRHEA, EGD/COLON R/O CELIAC/INFLAMMATION . 02 Diagnosis: A. Duodenal mucosa, duodenal biopsies: - No diagnostic abnormalities. . B. Colonic mucosa, random colon biopsies: - Mild chronic colitis with features suggestive of collagenous colitis. (JPM:dion; 10/14/2021) S 10/14/2021 1221 Local . 02 Comment: Sections of the duodenal biopsy reveal multiple segments of duodenal mucosa. Where best oriented, the mucosal villi show no sprue-like changes or significant inflammatory changes. . Sections of the random colon biopsy reveal multiple segments of colonic mucosa showing mild chronic inflammation without crypt architectural distortion. There appears to be a patchy increase of collagen deposition around the absorptive capillary complex beneath the surface epithelium. The findings are suggestive of collagenous colitis. (JPM:dion; 10/14/2021) . 02 Electronically signed: . Alex Linares MD, Pathologist NPI- [id number] . 01 Gross description: . A. The specimen is received in formalin, labeled "Zainab, Lartyson, duodenal BX's". Received are multiple segments of light brown tissue ranging in size from 0.3-0.5 cm in maximum dimensions. The specimen is entirely submitted in cassette A1. . B. The specimen is received in formalin, labeled "Stormdelfinger, Larie, random colon BX's". Received are multiple segments of pale hurt tissue ranging in size from 0.2-0.6 cm in maximum dimensions. The specimen is entirely submitted in cassette B1. ([facility]; 10/13/2021) NRI/NRI 10/13/2021 1847 Local . 02 Pathologist provided ICD-10: K52.9, R19.7 . 02 CPT . 159709, 038150 Specimen Comment: A courtesy copy of this report has been sent to [phone], [phone] Specimen Comment: 0 Specimen Comment: Report sent to / DR KLEIN Performed at: 01 [facility] [address] [facility] [address], [place] [id number] MD Enzo Hernandez MD Phone: [phone] Performed at: 02 [facility] [address] [place], [place] [id number] MD Alex Linares MD Phone: [phone]
== END | disposition home or self-care (01) ==
LOC: ENDOS 06:33
PROVIDERS: ATTEND Internal Medicine Gastroenterology
DX: R19.7 Diarrhea, unspecified (principal); K64.0 First degree hemorrhoids; K57.30 Diverticulosis of large intestine without perforation or abscess without bleeding; K63.89 Other specified diseases of intestine; K31.89 Other diseases of stomach and duodenum; K52.9 Noninfective gastroenteritis and colitis, unspecified; I10 Essential (primary) hypertension; K21.9 Gastro-esophageal reflux disease without esophagitis; G47.30 Sleep apnea, unspecified; F17.210 Nicotine dependence, cigarettes, uncomplicated; Z72.89 Other problems related to lifestyle; Z79.899 Other long term (current) drug therapy; Z98.890 Other specified postprocedural states; Z82.49 Family history of ischemic heart disease and other diseases of the circulatory system; Z83.3 Family history of diabetes mellitus; Z85.3 Personal history of malignant neoplasm of breast; Z88.8 Allergy status to other drugs, medicaments and biological substances
CPT/HCPCS: 43239; 45380; J2704

== ENCOUNTER → 2021-12-08 | Outpatient (CLI) | payer OTHER ==
[2021-10-13 08:50] VITALS: BP 184/91
[~2021-12-08] MED LIST changes: -HYDROmorphone 2 MG/ML INJ. IVP PRN; -IV RINGERS,LACTATED 1000ML 1,000 ML IV SCH; -MORPHINE SULFATE 2 MG/ML INJ. IVP PRN; -PROCHLORPERAZINE 10 MG/2 ML VIAL. IVP PRN; -PROPOFOL 10 MG/ML (20ML) VIAL. IV ONE; -fentaNYL PF VIAL 100 MCG/2 ML VIAL IVP PRN
--- NOTE | 2021-12-08 17:10 | RAD ---
Bilateral digital screening 2-D and 3-D (digital breast tomosynthesis) mammogram: Reason for examination: Routine screening. Comparison: Mammograms from 12/07/2020, 10/28/2020, 09/05/2019, 08/31/2018. Interpretation was made with the benefit of CAD. FINDINGS: Breast density: Category B. There are scattered areas of fibroglandular density. No suspicious breast mass, malignant appearing calcifications, or architectural distortion is seen. IMPRESSION: No evidence of malignancy. Assessment: BI-RADS 1. Negative. Recommendation: Routine screening mammograms. The patient will receive a letter with the results in the mail. Patient information will be entered i nto the mammography reminder system with a target recall date for the next mammogram. A reminder alberto er will be generated. Electronically signed by: Peggy Hernandez MD (12/08/2021 5:07 PM) [id number]
== END ==
LOC: MAMMO 13:10
PROVIDERS: ATTEND Family Medicine
DX: Z12.31 Encounter for screening mammogram for malignant neoplasm of breast (principal)
CPT/HCPCS: 77063; 77067

== ENCOUNTER 2022-02-02 05:56 | Day surgery (SDC) | payer OTHER ==
[~2022-02-02] VITALS: Ht 170.2 cm; Wt 81.3 kg
[~2022-02-02 05:56] MED LIST changes: +BUDE9TAB PO; +IBUP-1007 PO; +OLME5TAB4 PO; +PANT20TA2 PO
[2022-02-02] MEDS ORDERED: PROCHLORPERAZINE 10 MG/2 ML VIAL. IVP PRN (06:00)
[2022-02-02] MEDS ORDERED: MORPHINE SULFATE 2 MG/ML INJ. IVP PRN (06:00)
[2022-02-02] MEDS ORDERED: HYDROmorphone 2 MG/ML INJ. IVP PRN (06:00)
[2022-02-02] MEDS ORDERED: fentaNYL PF VIAL 100 MCG/2 ML VIAL IVP PRN ×2 (06:00)
[2022-02-02] MEDS ORDERED: IV RINGERS,LACTATED 1000ML 1,000 ML IV SCH (06:00)
[2022-02-02 06:25] VITALS: BP 194/113
[2022-02-02] MEDS ORDERED: BUPIVACAINE MPF 0.25% 30 ML VIAL. ONE (06:58)
[2022-02-02] MEDS ORDERED: PROPOFOL 10 MG/ML (20ML) VIAL. IV ONE (07:16)
[2022-02-02] MEDS ORDERED: fentaNYL PF VIAL 100 MCG/2 ML VIAL ONE ×2 (07:18→07:47)
[2022-02-02] MEDS ORDERED: ONDANSETRON PF 4 MG/2 ML VIAL. ONE (07:42)
[2022-02-02] MEDS ORDERED: KETOROLAC 30 MG/ML VIAL. ONE (07:42)
[2022-02-02] MEDS ORDERED: DEXAMETHASONE SOD PHOS 4 MG/ML VIAL ONE (07:42)
[2022-02-02] MEDS ORDERED: SEVOFLURANE > 120 MINUTES. IH ONE (08:33)
--- NOTE | 2022-02-02 09:18 | PDOC4 ---
OPERATIVE NOTE Date: Date: February 02, 2022 Pre-Op Diagnosis: Left symptomatic bunion Post-Op Diagnosis: Same as above Procedure Performed: Left distal metatarsal osteotomy and Anibal osteotomy through minimal invasive approach Surgeon: Pee Almanza DPM Anesthesia Type: General anesthesia Blood Loss: 20 cc Specimans Obtained: None Findings: Increased first intermetatarsal angle with laterally subluxed to hallux abutting the second digit, left Complications: None Operative Note: Under mild sedation, patient was brought into the operating room and placed on the operative table in a supine position. A formal timeout was performed to confirm patient's identity, procedure and procedure site. Following IV antibiotics and general anesthesia, a well-padded left high ankle tourniquet was applied. Following Betadine skin prep, 10 cc of 0.25% Marcaine plain was infilt rated in a [place] block fashion across the left forefoot. The left lower extremity was then prepped, scrubbed and draped using aseptic techniques. Tourniquet was not inflated Using intraoperative x-ray, a provisional osteotomy approximately 5 mm proximal to the sesamoids, aiming perpendicular to the second metatarsal shaft was marked. The central axial position of the first metatarsal and first TMT and first MTPJ were marked on lateral view. Then a 5 mm stab incision was made at the provisional osteotomy site on the lateral first metatarsal neck. The incision was carried deep to the periosteum layer with blunt dissection with ca re to protect the neurovascular bundles. Before osteotomy, the tourniquet was deflated. Then a 2 x 19.5 mm straight MIS bur was used to complete the osteotomy at the level of the first metatarsal neck aiming perpendicular to the second metatarsal shaft using intraoperative x-ray guidance. After the capital fragment was freed and mobilized, a jig was used to laterally translate the capital fragment to reduce the first metatarsal angle to under 8 degrees. Then using standard AO techniques, one 4.0 mm and one 3.0 mm fully threaded screws were placed from the medial proximal first metatarsal shaft to the capital fragment with goals to capture bicortical at the proximal first metatarsal shaft. Care was taken to protect the soft tissue neurovascular bundles at the medial surface of the first metatarsal near the screw placement sites. Intraoperative x-ray noted adequate hardware position, length without violating the first MTPJ. On the lateral view, the hardware was central to the first metatarsal shaft. The calcaneal axial view remarked adequate reduction of the sesamoids underneath the first metatarsal head. At this time, intraoperative exam remarked slight overlap between the hallux and second digit and then the decision was made to perform an Anibal osteotomy. Then a 5 mm stab incision was made at the medial surface of the proximal hallux. The incision was carried deep using blunt dissection to the periosteum layer. Then a 2.0 x 13 mm straight bur was used to complete the osteotomy aiming towards the lateral base of proximal hallux while preserving the lateral hinge. A small medially based wedge was removed and easy osteotomy apposition and reduction of the deformity was noted with 2 finger manipulation technique. Then using standard AO technique, a 3.0 millimeter screw was used to affix the osteotomy site. Intraoperative x-ray noted adequate hardware placement, position, reduc tion of the DASA deformity. All the surgical sites were irrigated with copious saline solution. The surgical sites were closed with 4-0 nylon. At the surgical sites were dressed with Xeroform, 4 x 4, Kerlix, ABD and Coban. Adequate digital perfusion was noted after surgery. Patient tolerated the procedure and anesthesia well with vital signs stable and neurovascular status intact. Patient was then transferred to PACU for continuous recovery. Pending surgical foot x-ray 3 view. PEE ALMANZA DPM February 02, 2022 09:18
[2022-02-02] MEDS ORDERED: ACETAMINOPHEN 325 MG TABLET. PO ONE (09:30)
[2022-02-02] MEDS ORDERED: oxyCODONE/APAP 5/325 1 TAB TABLET PO ONE (09:30)
[2022-02-02] MEDS ORDERED: GABAPENTIN 100 MG CAPSULE. PO ONE (09:30)
[2022-02-02 10:05] VITALS: BP 158/90
--- NOTE | 2022-02-02 15:59 | RAD ---
XR FOOT_LEFT 3 VIEWS 02/02/2022 Reason: post-op Comparison: None Technique: Portable 3 view radiographs of the left foot Findings: Postoperative changes of bunionectomy with osteotomies of the first metatarsal and proximal phalanx a nd screw fixation. No dislocation. Small plantar calcaneal enthesophyte. Impression: Postoperative evaluation demonstrating changes of bunionectomy. Electronically signed by: Aditya Weiner MD (02/02/2022 2:53 PM) [id number]
== END 2022-02-02 11:15 | disposition home or self-care (01) ==
LOC: SURG 05:56
PROVIDERS: ATTEND Podiatrist
DX: M21.612 Bunion of left foot (principal); M20.12 Hallux valgus (acquired), left foot; I10 Essential (primary) hypertension; K21.9 Gastro-esophageal reflux disease without esophagitis; M19.90 Unspecified osteoarthritis, unspecified site; F17.210 Nicotine dependence, cigarettes, uncomplicated; Z72.89 Other problems related to lifestyle; Z79.899 Other long term (current) drug therapy; Z98.890 Other specified postprocedural states; Z88.8 Allergy status to other drugs, medicaments and biological substances
CPT/HCPCS: 28299; 73630; J0690; J1100; J1885; J2405; J2704; J3010; J3490; A4209; A4657; A4930; A6223; A6253; A6402; A6449; A6454; C1776